=== PATIENT | male | born 1970 | race Two or more races ===

== ENCOUNTER 2021-08-04 16:41 | Inpatient (IN) | payer MEDICAID ==
[~2021-08-04] VITALS: Ht 185.4 cm; Wt 119.0 kg
[2021-08-04] MEDS ORDERED: KETOROLAC TROMETH 30 MG/ML 1ML VIAL IV ONE (18:15)
[2021-08-04] MEDS ORDERED: SODIUM CHLORIDE 0.9% 500 ML IV ONE (18:15)
[2021-08-04] MEDS ORDERED: CLINDAMYCIN 600MG IV 50 ML IV ONE (18:15)
[2021-08-04 18:59] LABS: Basophils # (auto) 0 10 ^3/uL (0-0.2); Basophils % (auto) 0.4 % (0.0-2.0); Eosinophils # (auto) 0.1 10 ^3/uL (0-0.8); Eosinophils % (auto) 1.1 % (0.0-7.0); Hematocrit 48.2 % (41.0-53.0); Hemoglobin 16.5 g/dL (13.5-17.5); Lymphocytes # (auto) 1.6 10 ^3/uL (0.4-5.4); Lymphocytes % (auto) 14.8 % (10.0-50.0); Mean Corpuscular Hemoglobin 30.2 pg (28.0-32.0); Mean Corpuscular Hgb Conc. 34.2 g/dL (32.0-36.0); Mean Corpuscular Volume 88.3 fL (80.0-100.0); Monocytes # (auto) 0.9 10 ^3/uL (0-1.3); Monocytes % (auto) 8.5 % (0.0-12.0); Neutrophils # (auto) 8.2 10 ^3/uL (1.6-8.6); Neutrophils % (auto) 75.2 % (37.0-80.0); Nucleated Red Blood Cells % 0.1 %; Red Blood Cells 5.46 10^6/uL (4.5-5.90); Red Cell Distribution Width 14.6 % (11.8-14.3); White Blood Cell 10.9 10^3/uL (4.4-10.8)
[2021-08-04 19:18] LABS: Albumin 3.8 g/dL (3.4-5.0); Calcium 8.7 mg/dL (8.5-10.1); Potassium 4.3 mmol/L (3.5-5.1)
[2021-08-04 19:21] LABS: BUN/Creatinine Ratio 12.7; Bilirubin, Total 0.6 mg/dL (0.2-1.0)
[2021-08-05] MEDS ORDERED: TEMAZEPAM 15 MG CAP PO PRN (00:30)
[2021-08-05] MEDS ORDERED: ACETAMINOPHEN 325 MG TAB PO PRN (00:30)
[2021-08-05] MEDS ORDERED: ONDANSETRON HCL 4 MG/2 ML VIAL IV PRN (00:30)
[2021-08-05] MEDS: HYDROcodone-ACET 5/325MG TAB PO PRN (01:15)
[2021-08-05] MEDS: cefTRIAXone 1GM/50ML D5W 50 ML IV SCH (03:38)
[2021-08-05] MEDS: CLINDAMYCIN 600MG IV 50 ML IV SCH ×3 (06:00→22:32)
[2021-08-05] MEDS ORDERED: PANTOPRAZOLE 40 MG TAB PO SCH (10:00)
[2021-08-05 12:30] VITALS: BP 143/75
[2021-08-05 13:00] VITALS: BP 143/75
[2021-08-05] MEDS ORDERED: ASPI-543 PO (14:20)
[2021-08-05 17:00] VITALS: BP 153/81
[2021-08-05 21:30] VITALS: BP 136/100
[2021-08-06] MEDS: HYDROcodone-ACET 5/325MG TAB PO PRN ×4 (04:39→23:15)
[2021-08-06 05:00] VITALS: BP 145/83
[2021-08-06 05:31] LABS: Basophils # (auto) 0 10 ^3/uL (0-0.2); Basophils % (auto) 0.5 % (0.0-2.0); Eosinophils # (auto) 0.2 10 ^3/uL (0-0.8); Eosinophils % (auto) 2.3 % (0.0-7.0); Hematocrit 43.3 % (41.0-53.0); Hemoglobin 14.8 g/dL (13.5-17.5); Lymphocytes # (auto) 1.9 10 ^3/uL (0.4-5.4); Lymphocytes % (auto) 27.6 % (10.0-50.0); Mean Corpuscular Hemoglobin 30.3 pg (28.0-32.0); Mean Corpuscular Hgb Conc. 34.1 g/dL (32.0-36.0); Mean Corpuscular Volume 88.8 fL (80.0-100.0); Monocytes # (auto) 0.5 10 ^3/uL (0-1.3); Monocytes % (auto) 7.3 % (0.0-12.0); Neutrophils # (auto) 4.3 10 ^3/uL (1.6-8.6); Neutrophils % (auto) 62.3 % (37.0-80.0); Red Blood Cells 4.88 10^6/uL (4.5-5.90); Red Cell Distribution Width 14.5 % (11.8-14.3); White Blood Cell 6.9 10^3/uL (4.4-10.8)
[2021-08-06] MEDS: CLINDAMYCIN 600MG IV 50 ML IV SCH ×3 (05:35→23:00)
[2021-08-06 05:54] LABS: Calcium 8.6 mg/dL (8.5-10.1); Potassium 3.8 mmol/L (3.5-5.1)
[2021-08-06 05:56] LABS: BUN/Creatinine Ratio 19.4
[2021-08-06 08:00] VITALS: BP 140/87
[2021-08-06] MEDS: cefTRIAXone 1GM/50ML D5W 50 ML IV SCH (09:06)
[2021-08-06 12:00] VITALS: BP 159/87
[2021-08-06 16:00] VITALS: BP 144/65
[2021-08-06] MEDS ORDERED: ALBUTEROL SULF 2.5 MG/0.5ML(0.5%) NEB SOLN ONE (18:20)
[2021-08-06] MEDS ORDERED: BUDESONIDE (INHALATION) 0.5 MG/2 ML NEB ONE (18:20)
[2021-08-06 22:00] VITALS: BP 152/83
[2021-08-07 05:00] VITALS: BP 152/84
[2021-08-07] MEDS: CLINDAMYCIN 600MG IV 50 ML IV SCH ×3 (07:06→23:00)
[2021-08-07 08:44] VITALS: BP 138/71
[2021-08-07] MEDS: cefTRIAXone 1GM/50ML D5W 50 ML IV SCH (08:52)
[2021-08-07] MEDS: HYDROcodone-ACET 5/325MG TAB PO PRN (08:53)
[2021-08-07 12:44] VITALS: BP 158/81
[2021-08-07 16:44] VITALS: BP 167/79
[2021-08-07 18:09] VITALS: BP 153/85
[2021-08-07 22:00] VITALS: BP 151/81
[2021-08-08 05:00] VITALS: BP 158/97
[2021-08-08] MEDS: CLINDAMYCIN 600MG IV 50 ML IV SCH ×3 (06:49→23:05)
[2021-08-08 08:47] VITALS: BP 153/86
[2021-08-08] MEDS: cefTRIAXone 1GM/50ML D5W 50 ML IV SCH (09:18)
[2021-08-08 13:00] VITALS: BP 156/88
[2021-08-08 13:22] LABS: INR 1.06 (0.9-1.15); Partial Thromboplastin Time 31.1 sec (23.6-33.0)
[2021-08-08] MEDS: HYDROcodone-ACET 5/325MG TAB PO PRN (13:35)
[2021-08-08 16:45] VITALS: BP 153/98
[2021-08-08 22:00] VITALS: BP 143/95
[2021-08-09 05:00] VITALS: BP 151/90
[2021-08-09] MEDS: CLINDAMYCIN 600MG IV 50 ML IV SCH ×3 (05:55→21:28)
[2021-08-09 09:00] VITALS: BP 149/81
[2021-08-09] MEDS: cefTRIAXone 1GM/50ML D5W 50 ML IV SCH (09:20)
[2021-08-09 13:00] VITALS: BP 152/82
[2021-08-09 17:00] VITALS: BP 138/87
[2021-08-09] MEDS: HYDROcodone-ACET 5/325MG TAB PO PRN (20:40)
[2021-08-09 22:00] VITALS: BP 154/97
[2021-08-10 05:00] VITALS: BP 144/98
[2021-08-10] MEDS: CLINDAMYCIN 600MG IV 50 ML IV SCH ×3 (05:24→21:20)
[2021-08-10 05:53] LABS: Basophils # (auto) 0 10 ^3/uL (0-0.2); Basophils % (auto) 0.6 % (0.0-2.0); Eosinophils # (auto) 0.2 10 ^3/uL (0-0.8); Eosinophils % (auto) 2.5 % (0.0-7.0); Hematocrit 47.5 % (41.0-53.0); Hemoglobin 16.4 g/dL (13.5-17.5); Lymphocytes # (auto) 2.2 10 ^3/uL (0.4-5.4); Lymphocytes % (auto) 25.6 % (10.0-50.0); Mean Corpuscular Hemoglobin 30.5 pg (28.0-32.0); Mean Corpuscular Hgb Conc. 34.6 g/dL (32.0-36.0); Mean Corpuscular Volume 88.2 fL (80.0-100.0); Monocytes # (auto) 0.5 10 ^3/uL (0-1.3); Monocytes % (auto) 6.3 % (0.0-12.0); Neutrophils # (auto) 5.5 10 ^3/uL (1.6-8.6); Red Blood Cells 5.38 10^6/uL (4.5-5.90); Red Cell Distribution Width 14.3 % (11.8-14.3); White Blood Cell 8.5 10^3/uL (4.4-10.8)
[2021-08-10 06:12] LABS: Albumin 3.2 g/dL (3.4-5.0); BUN/Creatinine Ratio 23.4; Calcium 8.7 mg/dL (8.5-10.1)
[2021-08-10 06:15] LABS: Bilirubin, Total 0.4 mg/dL (0.2-1.0); Total Protein 7.2 g/dL (6.4-8.2)
[2021-08-10 08:30] VITALS: BP_SYST 108; BP_SYST 152; BP_DIAS 72; BP_DIAS 90
[2021-08-10] MEDS: cefTRIAXone 1GM/50ML D5W 50 ML IV SCH (08:30)
[2021-08-10] MEDS ORDERED: GLYCOPYRROLATE 0.2 MG/ML 1ML VIAL ONE (11:43)
[2021-08-10] MEDS ORDERED: DexAMETHasone SOD PHOS 10MG/1ML VIAL INJ ONE (11:43)
[2021-08-10] MEDS ORDERED: KETOROLAC TROMETH 30 MG/ML 1ML VIAL ONE (11:43)
[2021-08-10] MEDS ORDERED: ONDANSETRON HCL 4 MG/2 ML VIAL ONE (11:43)
[2021-08-10] MEDS ORDERED: LIDOCAINE 2% (LOCAL ANESTH.) PF 5ml SDV ONE (11:43)
[2021-08-10] MEDS ORDERED: PROPOFOL 10 MG/ML 20 ML IV ONE (11:43)
[2021-08-10] MEDS ORDERED: HYDROmorphone HCL 2 MG/ML VL ONE (11:43)
[2021-08-10] MEDS ORDERED: MIDAZOLAM HCL 2MG/2ML 2ml VIAL (1mg/ml) ONE (11:43)
[2021-08-10] MEDS ORDERED: fentaNYL CITRATE 100 MCG/2 ML VL ONE (11:43)
[2021-08-10] MEDS ORDERED: ONDANSETRON HCL 4 MG/2 ML VIAL IV PRN (12:45)
[2021-08-10] MEDS ORDERED: HYDROmorphone HCL 2 MG/ML VL IV PRN (12:45)
[2021-08-10 17:00] VITALS: BP 130/68
[2021-08-10 22:00] VITALS: BP_SYST 113; BP_SYST 133; BP_DIAS 78; BP_DIAS 80
[2021-08-11 05:00] VITALS: BP 141/75
[2021-08-11] MEDS: CLINDAMYCIN 600MG IV 50 ML IV SCH ×3 (06:20→21:32)
[2021-08-11] MEDS: HYDROcodone-ACET 5/325MG TAB PO PRN ×2 (06:20→21:32)
[2021-08-11 06:31] LABS: Basophils # (auto) 0 10 ^3/uL (0-0.2); Basophils % (auto) 0.3 % (0.0-2.0); Eosinophils # (auto) 0 10 ^3/uL (0-0.8); Eosinophils % (auto) 0.2 % (0.0-7.0); Hematocrit 44.1 % (41.0-53.0); Hemoglobin 15.1 g/dL (13.5-17.5); Lymphocytes # (auto) 1.2 10 ^3/uL (0.4-5.4); Lymphocytes % (auto) 9.9 % (10.0-50.0); Mean Corpuscular Hemoglobin 30.1 pg (28.0-32.0); Mean Corpuscular Hgb Conc. 34.3 g/dL (32.0-36.0); Mean Corpuscular Volume 87.6 fL (80.0-100.0); Monocytes # (auto) 0.6 10 ^3/uL (0-1.3); Monocytes % (auto) 4.8 % (0.0-12.0); Neutrophils # (auto) 10.6 10 ^3/uL (1.6-8.6); Neutrophils % (auto) 84.8 % (37.0-80.0); Nucleated Red Blood Cells % 0.1 %; Red Blood Cells 5.03 10^6/uL (4.5-5.90); Red Cell Distribution Width 14.2 % (11.8-14.3); White Blood Cell 12.5 10^3/uL (4.4-10.8)
[2021-08-11 06:35] LABS: Calcium 8.5 mg/dL (8.5-10.1); Potassium 3.8 mmol/L (3.5-5.1)
[2021-08-11 06:38] LABS: BUN/Creatinine Ratio 30.9
[2021-08-11 09:00] VITALS: BP 126/77
[2021-08-11] MEDS: cefTRIAXone 1GM/50ML D5W 50 ML IV SCH (09:56)
[2021-08-11 13:00] VITALS: BP_SYST 112; BP_SYST 143; BP_DIAS 72; BP_DIAS 81
[2021-08-11 17:00] VITALS: BP 124/80
[2021-08-11 17:41] LABS: Alcohol, Urine < 3.0 mg/dL (0-10); Amphetamine Screen, Urine NEGATIVE (NEGATIVE); Barbiturate Scree,Urine NEGATIVE (NEGATIVE); Benzodiazephine Screen, Urine POSITIVE (NEGATIVE); Cannabinoid Screen, Urine NEGATIVE (NEGATIVE); Cocaine Screen, Urine NEGATIVE (NEGATIVE); Opiate Scree,Urine NEGATIVE (NEGATIVE); Phencyclidine Screen, Urine NEGATIVE (NEGATIVE)
[2021-08-11 22:00] VITALS: BP 149/75
[2021-08-12 05:00] VITALS: BP 138/58
[2021-08-12] MEDS: CLINDAMYCIN 600MG IV 50 ML IV SCH (05:56)
[2021-08-12 09:10] VITALS: BP 155/92
[2021-08-12] MEDS: cefTRIAXone 1GM/50ML D5W 50 ML IV SCH (09:14)
[2021-08-12] MEDS: HYDROcodone-ACET 5/325MG TAB PO PRN (09:15)
[2021-08-12 13:18] VITALS: BP 143/74
[2021-08-12 13:37] VITALS: BP 143/74
[2021-08-12 14:09] VITALS: BP 143/74
== END 2021-08-12 17:10 | disposition home or self-care (01) | DRG 720 ==
LOC: ER 16:41 → OVERFLOW 08-05 00:18 → WEST WING 08-05 08:50
PROVIDERS: ADMIT Nurse Practitioner; ATTEND Internal Medicine
PROC: 0JBN0ZZ Excision of Right Lower Leg Subcutaneous Tissue and Fascia, Open Approach (ICD-10-PCS; principal; 2021-08-10 11:55)
DX: A41.01 Sepsis due to Methicillin susceptible Staphylococcus aureus (principal); L03.115 Cellulitis of right lower limb; E66.9 Obesity, unspecified; I10 Essential (primary) hypertension; B95.61 Methicillin susceptible Staphylococcus aureus infection as the cause of diseases classified elsewhere; F15.10 Other stimulant abuse, uncomplicated; Z20.822 Contact with and (suspected) exposure to COVID-19; F17.210 Nicotine dependence, cigarettes, uncomplicated; Z82.3 Family history of stroke; Z82.49 Family history of ischemic heart disease and other diseases of the circulatory system; Z95.2 Presence of prosthetic heart valve; Z90.49 Acquired absence of other specified parts of digestive tract; Z91.19 Patient's noncompliance with other medical treatment and regimen; Z88.0 Allergy status to penicillin; Z68.32 Body mass index [BMI] 32.0-32.9, adult
CPT/HCPCS: 36415; 73590; 73700; 80048; 80053; 80307; 82962; 85025; 85610; 85652; 85730; 87040; 87070; 87075; 87077; 87186; 87205; 87426; 93005; 93306; 93971; 96365; 96366; 96367; G0378; J0696; J1100; J1885; J2001; J2250; J2405; J2704; J3490

== ENCOUNTER 2021-10-29 17:51 | Inpatient (IN) | payer MEDICAID, OTHER ==
[~2021-10-29] VITALS: Ht 185.4 cm; Wt 116.6 kg
[~2021-10-29 17:51] MED LIST: ASPI-543 PO
[2021-10-29] MEDS ORDERED: CLINDAMYCIN 600MG IV 50 ML IV ONE (19:00)
[2021-10-29] MEDS ORDERED: SODIUM CHLORIDE 0.9% 500 ML IV ONE (19:00)
[2021-10-29] MEDS ORDERED: DOCUSATE SOD 100 MG CAP PO PRN (21:30)
[2021-10-29] MEDS ORDERED: ACETAMINOPHEN 325 MG TAB PO PRN (21:30)
[2021-10-29] MEDS ORDERED: SODIUM CHLORIDE 0.9% 1,000 ML IV ONE (21:30)
[2021-10-29] MEDS ORDERED: ONDANSETRON HCL 4 MG/2 ML VIAL IV PRN (21:30)
[2021-10-29 22:11] LABS: Basophils # (auto) 0 10 ^3/uL (0-0.2); Basophils % (auto) 0.5 % (0.0-2.0); Eosinophils # (auto) 0.1 10 ^3/uL (0-0.8); Eosinophils % (auto) 1.1 % (0.0-7.0); Hematocrit 45.9 % (41.0-53.0); Hemoglobin 15.6 g/dL (13.5-17.5); Lymphocytes # (auto) 1.2 10 ^3/uL (0.4-5.4); Lymphocytes % (auto) 12.6 % (10.0-50.0); Mean Corpuscular Hemoglobin 30.3 pg (28.0-32.0); Mean Corpuscular Volume 88.9 fL (80.0-100.0); Monocytes # (auto) 0.6 10 ^3/uL (0-1.3); Monocytes % (auto) 6.4 % (0.0-12.0); Neutrophils # (auto) 7.6 10 ^3/uL (1.6-8.6); Neutrophils % (auto) 79.4 % (37.0-80.0); Red Blood Cells 5.17 10^6/uL (4.5-5.90); Red Cell Distribution Width 14.6 % (11.8-14.3); White Blood Cell 9.5 10^3/uL (4.4-10.8)
[2021-10-29] MEDS ORDERED: MORPHINE SULFATE INJECTION 2 MG/ML SYRG IV PRN (22:30)
[2021-10-29] MEDS ORDERED: NITROGLYCERIN 0.4 MG SL TAB SL PRN (22:30)
[2021-10-29] MEDS: SODIUM CHLOR 0.9% PF (SALINE LOCK) 10ML VIAL/SYR IV SCH (22:32)
[2021-10-29 22:33] LABS: Potassium 4.4 mmol/L (3.5-5.1)
[2021-10-29 22:40] LABS: Albumin 3.9 g/dL (3.4-5.0); BUN/Creatinine Ratio 21.1; Bilirubin, Total 0.6 mg/dL (0.2-1.0); Calcium 8.6 mg/dL (8.5-10.1); Total Protein 7.6 g/dL (6.4-8.2)
[2021-10-29] MEDS: CLINDAMYCIN 600MG IV 50 ML IV SCH (22:54)
[2021-10-29] MEDS: ASCORBIC ACID 500 MG TAB PO SCH (22:55)
[2021-10-29] MEDS: ENOXAPARIN SOD 60 MG/0.6 ML SYRINGE SC SCH (22:55)
[2021-10-29 23:17] LABS: INR 1.03 (0.9-1.15); Partial Thromboplastin Time 27.3 sec (23.6-33.0)
[2021-10-30 03:12] VITALS: BP 150/88
[2021-10-30] MEDS ORDERED: METO-158 PO (04:22)
[2021-10-30 05:00] VITALS: BP 150/88
[2021-10-30 05:36] LABS: Urine Bacteria NONE SEEN /hpf (None Seen); Urine Blood Negative /uL (Negative); Urine Hyaline Cast FEW /lpf (0 - 2); Urine Mucus FEW (None Seen); Urine Specific Gravity 1.033 (1.001-1.035); Urine WBC 1 /hpf (0 - 3)
[2021-10-30] MEDS: CLINDAMYCIN 600MG IV 50 ML IV SCH ×3 (05:46→20:57)
[2021-10-30] MEDS: SODIUM CHLOR 0.9% PF (SALINE LOCK) 10ML VIAL/SYR IV SCH ×3 (05:46→20:57)
[2021-10-30 09:00] VITALS: BP 146/89
[2021-10-30] MEDS: ASCORBIC ACID 500 MG TAB PO SCH ×2 (09:18→20:58)
[2021-10-30] MEDS: ZINC SULFATE 220mg CAP or TAB PO SCH (09:18)
[2021-10-30] MEDS: ENOXAPARIN SOD 60 MG/0.6 ML SYRINGE SC SCH ×2 (09:19→20:58)
[2021-10-30] MEDS: MULTIPLE VITAMIN TAB PO SCH (09:19)
[2021-10-30] MEDS: HYDROcodone-ACET 5/325MG TAB PO PRN (09:19)
[2021-10-30] MEDS ORDERED: FAMOTIDINE (10MG/ML) 2ML VL IV SCH (10:00)
[2021-10-30 10:05] LABS: Basophils # (auto) 0 10 ^3/uL (0-0.2); Basophils % (auto) 0.7 % (0.0-2.0); Eosinophils # (auto) 0.1 10 ^3/uL (0-0.8); Eosinophils % (auto) 2.1 % (0.0-7.0); Hematocrit 41.7 % (41.0-53.0); Hemoglobin 14.3 g/dL (13.5-17.5); Lymphocytes # (auto) 1.3 10 ^3/uL (0.4-5.4); Lymphocytes % (auto) 21.2 % (10.0-50.0); Mean Corpuscular Hemoglobin 30.5 pg (28.0-32.0); Mean Corpuscular Hgb Conc. 34.3 g/dL (32.0-36.0); Mean Corpuscular Volume 88.9 fL (80.0-100.0); Monocytes # (auto) 0.4 10 ^3/uL (0-1.3); Monocytes % (auto) 7.2 % (0.0-12.0); Neutrophils # (auto) 4.1 10 ^3/uL (1.6-8.6); Neutrophils % (auto) 68.8 % (37.0-80.0); Red Blood Cells 4.69 10^6/uL (4.5-5.90); Red Cell Distribution Width 14.5 % (11.8-14.3); White Blood Cell 5.9 10^3/uL (4.4-10.8)
[2021-10-30 10:12] LABS: Potassium 3.4 mmol/L (3.5-5.1)
[2021-10-30 10:21] LABS: Albumin 3.3 g/dL (3.4-5.0); BUN/Creatinine Ratio 14.6; Bilirubin, Total 0.6 mg/dL (0.2-1.0); Calcium 8.3 mg/dL (8.5-10.1); Total Protein 6.6 g/dL (6.4-8.2)
[2021-10-30 13:00] VITALS: BP 156/91
[2021-10-30 17:00] VITALS: BP 156/135
[2021-10-30] MEDS: METOPROLOL TARTRATE 50 MG TAB PO SCH (21:03)
[2021-10-30 22:00] VITALS: BP 103/79
[2021-10-30] MEDS: DAKINS HALF STR 0.25% (NaHypochlorite) 473 ML TOPICAL SOL TOP SCH (22:15)
[2021-10-31] MEDS: CLINDAMYCIN 600MG IV 50 ML IV SCH ×3 (05:13→21:17)
[2021-10-31] MEDS: SODIUM CHLOR 0.9% PF (SALINE LOCK) 10ML VIAL/SYR IV SCH ×3 (05:14→21:17)
[2021-10-31 09:00] VITALS: BP 139/83
[2021-10-31] MEDS ORDERED: POTASSIUM CHL 20 Meq TABLET PO ONE (09:15)
[2021-10-31] MEDS: ZINC SULFATE 220mg CAP or TAB PO SCH (10:53)
[2021-10-31] MEDS: ASPirin 81 mg TAB PO SCH (10:53)
[2021-10-31] MEDS: MULTIPLE VITAMIN TAB PO SCH (10:54)
[2021-10-31] MEDS: ENOXAPARIN SOD 60 MG/0.6 ML SYRINGE SC SCH ×2 (10:54→21:18)
[2021-10-31] MEDS: ASCORBIC ACID 500 MG TAB PO SCH ×2 (10:54→21:18)
[2021-10-31] MEDS: METOPROLOL TARTRATE 50 MG TAB PO SCH ×2 (10:54→21:53)
[2021-10-31] MEDS: DAKINS HALF STR 0.25% (NaHypochlorite) 473 ML TOPICAL SOL TOP SCH (10:55)
[2021-10-31 13:00] VITALS: BP 133/75
[2021-10-31 17:00] VITALS: BP 140/86
[2021-10-31 22:00] VITALS: BP 135/72
[2021-11-01 05:00] VITALS: BP 135/78
[2021-11-01] MEDS: CLINDAMYCIN 600MG IV 50 ML IV SCH ×3 (05:46→22:33)
[2021-11-01] MEDS: SODIUM CHLOR 0.9% PF (SALINE LOCK) 10ML VIAL/SYR IV SCH ×3 (05:47→22:00)
[2021-11-01 09:00] VITALS: BP 153/89
[2021-11-01] MEDS: ASPirin 81 mg TAB PO SCH (10:55)
[2021-11-01] MEDS: MULTIPLE VITAMIN TAB PO SCH (10:56)
[2021-11-01] MEDS: ZINC SULFATE 220mg CAP or TAB PO SCH (10:56)
[2021-11-01] MEDS: METOPROLOL TARTRATE 50 MG TAB PO SCH ×2 (10:56→22:35)
[2021-11-01] MEDS: ENOXAPARIN SOD 60 MG/0.6 ML SYRINGE SC SCH ×2 (10:57→22:34)
[2021-11-01] MEDS: DAKINS HALF STR 0.25% (NaHypochlorite) 473 ML TOPICAL SOL TOP SCH (10:57)
[2021-11-01] MEDS: ASCORBIC ACID 500 MG TAB PO SCH ×2 (10:57→22:34)
[2021-11-01 17:00] VITALS: BP 130/87
[2021-11-01 22:00] VITALS: BP 109/60
[2021-11-01] MEDS: MORPHINE SULFATE 4 MG/ML SYR/VIAL IV PRN (23:04)
[2021-11-02 06:00] VITALS: BP 140/79
[2021-11-02] MEDS: CLINDAMYCIN 600MG IV 50 ML IV SCH ×3 (06:21→23:06)
[2021-11-02] MEDS: SODIUM CHLOR 0.9% PF (SALINE LOCK) 10ML VIAL/SYR IV SCH ×3 (06:21→23:06)
[2021-11-02 09:00] VITALS: BP 123/66
[2021-11-02] MEDS: ASPirin 81 mg TAB PO SCH (09:58)
[2021-11-02] MEDS: MORPHINE SULFATE 4 MG/ML SYR/VIAL IV PRN ×2 (09:58→19:31)
[2021-11-02] MEDS: METOPROLOL TARTRATE 50 MG TAB PO SCH ×2 (09:59→23:07)
[2021-11-02] MEDS: ENOXAPARIN SOD 60 MG/0.6 ML SYRINGE SC SCH ×2 (09:59→23:08)
[2021-11-02] MEDS: ASCORBIC ACID 500 MG TAB PO SCH ×2 (09:59→23:07)
[2021-11-02] MEDS: ZINC SULFATE 220mg CAP or TAB PO SCH (09:59)
[2021-11-02] MEDS: MULTIPLE VITAMIN TAB PO SCH (09:59)
[2021-11-02] MEDS: DAKINS HALF STR 0.25% (NaHypochlorite) 473 ML TOPICAL SOL TOP SCH (10:04)
[2021-11-02 13:00] VITALS: BP 137/75
[2021-11-02 17:00] VITALS: BP 126/74
[2021-11-03] MEDS: SODIUM CHLOR 0.9% PF (SALINE LOCK) 10ML VIAL/SYR IV SCH ×3 (06:52→22:55)
[2021-11-03] MEDS: CLINDAMYCIN 600MG IV 50 ML IV SCH ×3 (07:08→22:56)
[2021-11-03 08:30] VITALS: BP 143/80
[2021-11-03] MEDS: HYDROcodone-ACET 5/325MG TAB PO PRN ×3 (09:28→22:58)
[2021-11-03] MEDS: ASPirin 81 mg TAB PO SCH (09:29)
[2021-11-03] MEDS: ASCORBIC ACID 500 MG TAB PO SCH ×2 (09:29→22:57)
[2021-11-03] MEDS: ZINC SULFATE 220mg CAP or TAB PO SCH (09:29)
[2021-11-03] MEDS: METOPROLOL TARTRATE 50 MG TAB PO SCH ×2 (09:30→22:56)
[2021-11-03] MEDS: DAKINS HALF STR 0.25% (NaHypochlorite) 473 ML TOPICAL SOL TOP SCH (09:30)
[2021-11-03] MEDS: MULTIPLE VITAMIN TAB PO SCH (09:30)
[2021-11-03] MEDS: ENOXAPARIN SOD 60 MG/0.6 ML SYRINGE SC SCH ×2 (09:31→22:57)
[2021-11-03 23:03] VITALS: BP 135/77
[2021-11-04 05:33] VITALS: BP 152/75
[2021-11-04] MEDS: SODIUM CHLOR 0.9% PF (SALINE LOCK) 10ML VIAL/SYR IV SCH ×3 (06:24→22:04)
[2021-11-04] MEDS: CLINDAMYCIN 600MG IV 50 ML IV SCH ×3 (06:24→22:04)
[2021-11-04] MEDS: HYDROcodone-ACET 5/325MG TAB PO PRN ×2 (06:31→17:15)
[2021-11-04 07:58] VITALS: BP 128/71
[2021-11-04 08:30] VITALS: BP 128/71
[2021-11-04] MEDS: ASPirin 81 mg TAB PO SCH (09:16)
[2021-11-04] MEDS: METOPROLOL TARTRATE 50 MG TAB PO SCH ×2 (09:16→22:05)
[2021-11-04] MEDS: ENOXAPARIN SOD 60 MG/0.6 ML SYRINGE SC SCH ×2 (09:16→22:05)
[2021-11-04] MEDS: MULTIPLE VITAMIN TAB PO SCH (09:16)
[2021-11-04] MEDS: ASCORBIC ACID 500 MG TAB PO SCH ×2 (09:16→22:05)
[2021-11-04] MEDS: DAKINS HALF STR 0.25% (NaHypochlorite) 473 ML TOPICAL SOL TOP SCH (09:16)
[2021-11-04] MEDS: ZINC SULFATE 220mg CAP or TAB PO SCH (09:16)
[2021-11-04 11:55] VITALS: BP 138/80
[2021-11-04 17:04] VITALS: BP 148/77
[2021-11-04 22:00] VITALS: BP 118/81
[2021-11-05] MEDS: HYDROcodone-ACET 5/325MG TAB PO PRN ×2 (04:50→21:45)
[2021-11-05 05:00] VITALS: BP 148/78
[2021-11-05] MEDS: CLINDAMYCIN 600MG IV 50 ML IV SCH ×3 (06:04→21:43)
[2021-11-05] MEDS: SODIUM CHLOR 0.9% PF (SALINE LOCK) 10ML VIAL/SYR IV SCH ×3 (06:04→21:44)
[2021-11-05 07:46] LABS: Basophils # (auto) 0.1 10 ^3/uL (0-0.2); Eosinophils # (auto) 0.2 10 ^3/uL (0-0.8); Eosinophils % (auto) 2.7 % (0.0-7.0); Hematocrit 47.4 % (41.0-53.0); Hemoglobin 16.2 g/dL (13.5-17.5); Lymphocytes # (auto) 2.2 10 ^3/uL (0.4-5.4); Lymphocytes % (auto) 31.6 % (10.0-50.0); Mean Corpuscular Hemoglobin 30.5 pg (28.0-32.0); Mean Corpuscular Hgb Conc. 34.3 g/dL (32.0-36.0); Monocytes # (auto) 0.6 10 ^3/uL (0-1.3); Monocytes % (auto) 8.6 % (0.0-12.0); Neutrophils # (auto) 3.9 10 ^3/uL (1.6-8.6); Neutrophils % (auto) 56.1 % (37.0-80.0); Nucleated Red Blood Cells % 0.2 %; Red Blood Cells 5.33 10^6/uL (4.5-5.90); Red Cell Distribution Width 14.6 % (11.8-14.3)
[2021-11-05 07:55] LABS: Calcium 8.7 mg/dL (8.5-10.1); Potassium 4.4 mmol/L (3.5-5.1)
[2021-11-05 08:30] VITALS: BP 134/75
[2021-11-05 09:00] VITALS: BP 134/75
[2021-11-05] MEDS: ASPirin 81 mg TAB PO SCH (09:41)
[2021-11-05] MEDS: ASCORBIC ACID 500 MG TAB PO SCH ×2 (09:42→21:43)
[2021-11-05] MEDS: MULTIPLE VITAMIN TAB PO SCH (09:42)
[2021-11-05] MEDS: METOPROLOL TARTRATE 50 MG TAB PO SCH ×2 (09:43→21:53)
[2021-11-05] MEDS: DAKINS HALF STR 0.25% (NaHypochlorite) 473 ML TOPICAL SOL TOP SCH (09:43)
[2021-11-05] MEDS: ZINC SULFATE 220mg CAP or TAB PO SCH (09:43)
[2021-11-05] MEDS: ENOXAPARIN SOD 60 MG/0.6 ML SYRINGE SC SCH ×2 (09:43→21:43)
[2021-11-05 13:00] VITALS: BP 122/65
[2021-11-05 17:23] VITALS: BP 137/61
[2021-11-05] MEDS: MORPHINE SULFATE 4 MG/ML SYR/VIAL IV PRN (18:29)
[2021-11-05 22:35] VITALS: BP 153/76
[2021-11-06 05:13] VITALS: BP 111/64
[2021-11-06] MEDS: SODIUM CHLOR 0.9% PF (SALINE LOCK) 10ML VIAL/SYR IV SCH (06:38)
[2021-11-06] MEDS: CLINDAMYCIN 600MG IV 50 ML IV SCH (06:38)
[2021-11-06] MEDS: HYDROcodone-ACET 5/325MG TAB PO PRN (08:45)
[2021-11-06 09:00] VITALS: BP 135/75
[2021-11-06] MEDS: ASPirin 81 mg TAB PO SCH (09:05)
[2021-11-06] MEDS: MULTIPLE VITAMIN TAB PO SCH (09:05)
[2021-11-06] MEDS: ZINC SULFATE 220mg CAP or TAB PO SCH (09:05)
[2021-11-06] MEDS: METOPROLOL TARTRATE 50 MG TAB PO SCH (09:06)
[2021-11-06] MEDS: ENOXAPARIN SOD 60 MG/0.6 ML SYRINGE SC SCH (09:06)
[2021-11-06] MEDS: DAKINS HALF STR 0.25% (NaHypochlorite) 473 ML TOPICAL SOL TOP SCH (09:07)
[2021-11-06] MEDS: ASCORBIC ACID 500 MG TAB PO SCH (09:07)
[2021-11-06] MEDS ORDERED: HYDR-4902 PO (10:49)
[2021-11-06] MEDS ORDERED: CLIN300C8 PO (10:49)
[2021-11-06 13:07] VITALS: BP 104/55
== END 2021-11-06 14:00 | disposition home or self-care (01) | DRG 383 ==
LOC: ER 17:52 → OVERFLOW 22:19 → CENTRAL 10-30 02:51
PROVIDERS: ADMIT Nurse Practitioner Family; ATTEND Family Medicine
DX: L03.115 Cellulitis of right lower limb (principal); L97.519 Non-pressure chronic ulcer of other part of right foot with unspecified severity; T33.821A Superficial frostbite of right foot, initial encounter; F15.90 Other stimulant use, unspecified, uncomplicated; F17.210 Nicotine dependence, cigarettes, uncomplicated; B95.7 Other staphylococcus as the cause of diseases classified elsewhere; I10 Essential (primary) hypertension; Z20.822 Contact with and (suspected) exposure to COVID-19; Z95.2 Presence of prosthetic heart valve; Z82.3 Family history of stroke; Z82.49 Family history of ischemic heart disease and other diseases of the circulatory system; Z86.73 Personal history of transient ischemic attack (TIA), and cerebral infarction without residual deficits; Z86.79 Personal history of other diseases of the circulatory system; Z91.19 Patient's noncompliance with other medical treatment and regimen; Z88.0 Allergy status to penicillin; Z90.49 Acquired absence of other specified parts of digestive tract; Z89.112 Acquired absence of left hand; Z71.6 Tobacco abuse counseling
CPT/HCPCS: 36415; 73700; 80048; 80053; 81001; 83605; 85025; 85610; 85730; 87040; 87077; 87186; 87426; 93926; 93970; 96361; 96374; G0378; J3490; J7042

== ENCOUNTER 2021-11-15 16:58 | Emergency (ER) | payer OTHER ==
[~2021-11-15] VITALS: Ht 188 cm; Wt 113.4 kg
[~2021-11-15 16:58] MED LIST changes: +CLIN300C8 PO; +HYDR-4902 PO; +METO-158 PO
[2021-11-15 18:22] LABS: Basophils # (auto) 0.1 10 ^3/uL (0-0.2); Basophils % (auto) 0.6 % (0.0-2.0); Eosinophils # (auto) 0.1 10 ^3/uL (0-0.8); Eosinophils % (auto) 0.8 % (0.0-7.0); Lymphocytes # (auto) 1.2 10 ^3/uL (0.4-5.4); Lymphocytes % (auto) 12.4 % (10.0-50.0); Mean Corpuscular Hemoglobin 29.8 pg (28.0-32.0); Mean Corpuscular Hgb Conc. 33.4 g/dL (32.0-36.0); Mean Corpuscular Volume 89.1 fL (80.0-100.0); Monocytes # (auto) 0.4 10 ^3/uL (0-1.3); Monocytes % (auto) 4.5 % (0.0-12.0); Neutrophils # (auto) 7.7 10 ^3/uL (1.6-8.6); Neutrophils % (auto) 81.7 % (37.0-80.0); Nucleated Red Blood Cells % 0.1 %; Red Blood Cells 5.05 10^6/uL (4.5-5.90); Red Cell Distribution Width 14.2 % (11.8-14.3); White Blood Cell 9.5 10^3/uL (4.4-10.8)
[2021-11-15 18:24] LABS: Albumin 3.7 g/dL (3.4-5.0); Calcium 8.9 mg/dL (8.5-10.1); Potassium 3.6 mmol/L (3.5-5.1)
[2021-11-15 18:31] LABS: Bilirubin, Total 0.7 mg/dL (0.2-1.0); Total Protein 7.8 g/dL (6.4-8.2)
[2021-11-15 19:43] VITALS: BP 114/75
== END 2021-11-15 20:08 | disposition left against medical advice (07) ==
LOC: ER 16:58 → EDBD 16:58 → ER 20:08
DX: M79.605 Pain in left leg (principal); M79.604 Pain in right leg; Z53.21 Procedure and treatment not carried out due to patient leaving prior to being seen by health care provider
CPT/HCPCS: 36415; 80053; 83880; 84484; 85025

== ENCOUNTER 2022-09-16 12:57 | Inpatient (IN) | payer OTHER ==
[~2022-09-16] VITALS: Ht 188 cm; Wt 125.5 kg
[2022-09-16 20:55] LABS: Urine Specific Gravity 1.022 (1.001-1.035)
[2022-09-16 20:56] LABS: Urine Blood Negative /uL (Negative)
[2022-09-17] MEDS ORDERED: HYDROcodone-ACET 10/325MG TAB PO ONE (01:30)
[2022-09-17] MEDS ORDERED: VANCOMYCIN 1GM/250ML 250 ML IV ONE ×3 (01:30→15:00)
[2022-09-17] MEDS ORDERED: ONDANSETRON ODT 4 MG TAB PO ONE (01:30)
[2022-09-17] MEDS ORDERED: CEFTRIAXONE SODIUM 2 GM in D5W 5% 50 ML IV ONE (01:30)
[2022-09-17 01:52] LABS: Basophils # (auto) 0.1 10 ^3/uL (0-0.2); Basophils % (auto) 0.7 % (0.0-2.0); Eosinophils # (auto) 0.2 10 ^3/uL (0-0.8); Eosinophils % (auto) 2.6 % (0.0-7.0); Hemoglobin 16.1 g/dL (13.5-17.5); Lymphocytes # (auto) 1.4 10 ^3/uL (0.4-5.4); Lymphocytes % (auto) 16.1 % (10.0-50.0); Mean Corpuscular Hemoglobin 29.3 pg (28.0-32.0); Mean Corpuscular Hgb Conc. 32.9 g/dL (32.0-36.0); Mean Corpuscular Volume 89.2 fL (80.0-100.0); Monocytes # (auto) 0.5 10 ^3/uL (0-1.3); Monocytes % (auto) 5.7 % (0.0-12.0); Neutrophils # (auto) 6.6 10 ^3/uL (1.6-8.6); Neutrophils % (auto) 74.9 % (37.0-80.0); Red Blood Cells 5.49 10^6/uL (4.5-5.90); Red Cell Distribution Width 14.5 % (11.8-14.3); White Blood Cell 8.8 10^3/uL (4.4-10.8)
[2022-09-17 02:02] LABS: Albumin 3.8 g/dL (3.4-5.0); BUN/Creatinine Ratio 23.5; Calcium 9.3 mg/dL (8.5-10.1); Potassium 3.6 mmol/L (3.5-5.1)
[2022-09-17 02:05] LABS: Bilirubin, Total 0.4 mg/dL (0.2-1.0); Total Protein 7.6 g/dL (6.4-8.2)
[2022-09-17 02:25] LABS: CRP High Sensitivity 0.516 mg/dL (< 0.3)
[2022-09-17] MEDS ORDERED: VANCOMYCIN PER PHARMACY 0 MG IV SCH (04:45)
[2022-09-17] MEDS ORDERED: MORPHINE SULFATE INJ 2 MG/ml SYRG IV PRN (04:45)
[2022-09-17] MEDS ORDERED: hydrALAZINE HCL 20 MG/ML VL IV PRN (04:45)
[2022-09-17] MEDS ORDERED: ACETAMINOPHEN 325 MG TAB PO PRN (04:45)
[2022-09-17] MEDS ORDERED: ONDANSETRON HCL 4 MG/2 ML VIAL IV PRN (04:45)
[2022-09-17] MEDS ORDERED: NITROGLYCERIN 0.4 MG SL TAB SL PRN (04:45)
[2022-09-17] MEDS ORDERED: DOCUSATE SOD 100 MG CAP PO PRN (04:45)
[2022-09-17 07:12] LABS: Basophils # (auto) 0.1 10 ^3/uL (0-0.2); Basophils % (auto) 0.6 % (0.0-2.0); Eosinophils # (auto) 0.1 10 ^3/uL (0-0.8); Eosinophils % (auto) 1.7 % (0.0-7.0); Hematocrit 44.7 % (41.0-53.0); Hemoglobin 14.8 g/dL (13.5-17.5); Lymphocytes # (auto) 1.8 10 ^3/uL (0.4-5.4); Mean Corpuscular Hemoglobin 29.4 pg (28.0-32.0); Mean Corpuscular Volume 88.9 fL (80.0-100.0); Monocytes # (auto) 0.6 10 ^3/uL (0-1.3); Monocytes % (auto) 6.6 % (0.0-12.0); Neutrophils % (auto) 70.1 % (37.0-80.0); Nucleated Red Blood Cells % 0.1 %; Red Blood Cells 5.02 10^6/uL (4.5-5.90); Red Cell Distribution Width 14.6 % (11.8-14.3); White Blood Cell 8.5 10^3/uL (4.4-10.8)
[2022-09-17 07:29] LABS: Albumin 3.3 g/dL (3.4-5.0); Calcium 8.6 mg/dL (8.5-10.1); Potassium 4.3 mmol/L (3.5-5.1)
[2022-09-17 07:32] LABS: BUN/Creatinine Ratio 29.2; Bilirubin, Total 0.9 mg/dL (0.2-1.0); Total Protein 6.4 g/dL (6.4-8.2)
[2022-09-17] MEDS: SODIUM CHLORIDE 0.9% 1,000 ML IV SCH (08:15)
[2022-09-17] MEDS: ENOXAPARIN SOD 40 MG/0.4 ML SYRINGE SC SCH (11:32)
[2022-09-17] MEDS: MULTIPLE VITAMIN TAB PO SCH (11:33)
[2022-09-17] MEDS: ASCORBIC ACID 500 MG TAB PO SCH ×2 (11:33→22:01)
[2022-09-17] MEDS: ASPirin 81 mg TAB PO SCH (11:33)
[2022-09-17] MEDS: HYDROcodone-ACET 5/325MG TAB PO PRN (11:33)
[2022-09-17] MEDS: ZINC SULFATE 220mg CAP or TAB PO SCH (13:28)
[2022-09-17] MEDS: MORPHINE SULFATE INJ 2 MG/ml SYRG IV PRN ×2 (16:23→21:31)
[2022-09-17] MEDS: levoFLOXacin 500MG 100 ML IV SCH (16:24)
[2022-09-17 22:00] VITALS: BP 124/70
[2022-09-18] MEDS: VANCOMYCIN 1GM/250ML 250 ML IV SCH ×3 (00:22→17:26)
[2022-09-18] MEDS: MORPHINE SULFATE INJ 2 MG/ml SYRG IV PRN ×4 (03:05→21:07)
[2022-09-18 05:00] VITALS: BP 118/55
[2022-09-18] MEDS: SODIUM CHLORIDE 0.9% 1,000 ML IV SCH ×2 (05:26→14:05)
[2022-09-18 06:33] LABS: Basophils # (auto) 0.1 10 ^3/uL (0-0.2); Eosinophils # (auto) 0.2 10 ^3/uL (0-0.8); Eosinophils % (auto) 2.6 % (0.0-7.0); Hematocrit 45.7 % (41.0-53.0); Lymphocytes # (auto) 2.2 10 ^3/uL (0.4-5.4); Lymphocytes % (auto) 29.5 % (10.0-50.0); Mean Corpuscular Hemoglobin 29.2 pg (28.0-32.0); Mean Corpuscular Hgb Conc. 32.9 g/dL (32.0-36.0); Mean Corpuscular Volume 88.8 fL (80.0-100.0); Monocytes # (auto) 0.6 10 ^3/uL (0-1.3); Monocytes % (auto) 8.5 % (0.0-12.0); Neutrophils # (auto) 4.3 10 ^3/uL (1.6-8.6); Neutrophils % (auto) 58.4 % (37.0-80.0); Nucleated Red Blood Cells % 0.1 %; Red Blood Cells 5.14 10^6/uL (4.5-5.90); Red Cell Distribution Width 14.5 % (11.8-14.3); White Blood Cell 7.4 10^3/uL (4.4-10.8)
[2022-09-18 06:52] LABS: Albumin 3.1 g/dL (3.4-5.0); Calcium 8.7 mg/dL (8.5-10.1); Potassium 4.3 mmol/L (3.5-5.1)
[2022-09-18 06:58] LABS: BUN/Creatinine Ratio 21.1; Bilirubin, Total 0.6 mg/dL (0.2-1.0); Total Protein 6.6 g/dL (6.4-8.2)
[2022-09-18 09:29] VITALS: BP 160/87
[2022-09-18] MEDS: ZINC SULFATE 220mg CAP or TAB PO SCH (10:17)
[2022-09-18] MEDS: ASCORBIC ACID 500 MG TAB PO SCH ×2 (10:17→21:05)
[2022-09-18] MEDS: ASPirin 81 mg TAB PO SCH (10:17)
[2022-09-18] MEDS: MULTIPLE VITAMIN TAB PO SCH (10:17)
[2022-09-18] MEDS: ENOXAPARIN SOD 40 MG/0.4 ML SYRINGE SC SCH (10:18)
[2022-09-18 12:52] VITALS: BP 168/84
[2022-09-18] MEDS: levoFLOXacin 500MG 100 ML IV SCH (13:59)
[2022-09-18 16:04] LABS: Alcohol, Urine < 3.0 mg/dL (0-10); Amphetamine Screen, Urine NEGATIVE (NEGATIVE); Barbiturate Scree,Urine NEGATIVE (NEGATIVE); Benzodiazephine Screen, Urine NEGATIVE (NEGATIVE); Cannabinoid Screen, Urine NEGATIVE (NEGATIVE); Cocaine Screen, Urine NEGATIVE (NEGATIVE); Opiate Scree,Urine NEGATIVE (NEGATIVE); Phencyclidine Screen, Urine NEGATIVE (NEGATIVE)
[2022-09-18 16:51] VITALS: BP 137/66
[2022-09-18 22:00] VITALS: BP 148/69
[2022-09-19] MEDS: VANCOMYCIN 1GM/250ML 250 ML IV SCH ×3 (00:55→16:00)
[2022-09-19] MEDS: MORPHINE SULFATE INJ 2 MG/ml SYRG IV PRN ×4 (00:55→20:31)
[2022-09-19 05:00] VITALS: BP 163/82
[2022-09-19] MEDS: SODIUM CHLORIDE 0.9% 1,000 ML IV SCH ×2 (06:45→21:30)
[2022-09-19 07:12] LABS: Albumin 3.5 g/dL (3.4-5.0); BUN/Creatinine Ratio 21.4; Phosphorus 3.9 mg/dL (2.5-4.90); Potassium 4.1 mmol/L (3.5-5.1)
[2022-09-19 09:00] VITALS: BP 139/43
[2022-09-19] MEDS: levoFLOXacin 500MG 100 ML IV SCH (10:00)
[2022-09-19] MEDS: MULTIPLE VITAMIN TAB PO SCH (11:42)
[2022-09-19] MEDS: ASCORBIC ACID 500 MG TAB PO SCH ×2 (11:42→21:30)
[2022-09-19] MEDS: ZINC SULFATE 220mg CAP or TAB PO SCH (11:42)
[2022-09-19] MEDS: ASPirin 81 mg TAB PO SCH (11:42)
[2022-09-19] MEDS: ENOXAPARIN SOD 40 MG/0.4 ML SYRINGE SC SCH (11:43)
[2022-09-19 13:00] VITALS: BP 169/81
[2022-09-19 17:00] VITALS: BP 151/73
[2022-09-19] MEDS: HYDROcodone-ACET 5/325MG TAB PO PRN (21:30)
[2022-09-19 22:00] VITALS: BP 129/76
[2022-09-19] MEDS ORDERED: diphenhdrAMINE HCL 25 MG CAP PO ONE (22:45)
[2022-09-20] MEDS: VANCOMYCIN 1GM/250ML 250 ML IV SCH ×2 (00:02→08:00)
[2022-09-20] MEDS: MORPHINE SULFATE INJ 2 MG/ml SYRG IV PRN ×5 (00:34→22:13)
[2022-09-20 05:00] VITALS: BP 158/85
[2022-09-20 05:45] LABS: Albumin 3.1 g/dL (3.4-5.0)
[2022-09-20 05:48] LABS: Calcium 8.6 mg/dL (8.5-10.1); Phosphorus 3.6 mg/dL (2.5-4.90)
[2022-09-20 09:00] VITALS: BP 146/79
[2022-09-20] MEDS: MULTIPLE VITAMIN TAB PO SCH (09:43)
[2022-09-20] MEDS: ASPirin 81 mg TAB PO SCH (09:43)
[2022-09-20] MEDS: ASCORBIC ACID 500 MG TAB PO SCH ×2 (09:43→22:10)
[2022-09-20] MEDS: ENOXAPARIN SOD 40 MG/0.4 ML SYRINGE SC SCH (09:44)
[2022-09-20] MEDS: ZINC SULFATE 220mg CAP or TAB PO SCH (09:44)
[2022-09-20] MEDS: levoFLOXacin 500MG 100 ML IV SCH (10:00)
[2022-09-20 13:00] VITALS: BP 146/78
[2022-09-20] MEDS: SODIUM CHLORIDE 0.9% 1,000 ML IV SCH (16:05)
[2022-09-20 17:00] VITALS: BP 146/77
[2022-09-20] MEDS: HYDROcodone-ACET 5/325MG TAB PO PRN (19:50)
[2022-09-20 22:00] VITALS: BP 142/72
[2022-09-20] MEDS: TRIAMCINOLONE ACET 0.1% TOPICAL CREAM 15GM TOP SCH (23:59)
[2022-09-21] MEDS: VANCOMYCIN 1GM/250ML 250 ML IV SCH ×2 (02:08→12:00)
[2022-09-21 05:00] VITALS: BP 154/74
[2022-09-21 06:30] LABS: Albumin 3.4 g/dL (3.4-5.0); BUN/Creatinine Ratio 22.4; Calcium 8.7 mg/dL (8.5-10.1); Phosphorus 4.1 mg/dL (2.5-4.90)
[2022-09-21] MEDS: SODIUM CHLORIDE 0.9% 1,000 ML IV SCH (08:14)
[2022-09-21] MEDS: MORPHINE SULFATE INJ 2 MG/ml SYRG IV PRN (08:14)
[2022-09-21 09:00] VITALS: BP 125/76
[2022-09-21] MEDS ORDERED: CLOT1CRE56 TOP (11:43)
[2022-09-21] MEDS ORDERED: LEVO500T31 PO (11:43)
[2022-09-21] MEDS ORDERED: TRI05TP TOP (11:43)
[2022-09-21] MEDS: ASPirin 81 mg TAB PO SCH (12:04)
[2022-09-21] MEDS: ZINC SULFATE 220mg CAP or TAB PO SCH (12:05)
[2022-09-21] MEDS: MULTIPLE VITAMIN TAB PO SCH (12:05)
[2022-09-21] MEDS: ENOXAPARIN SOD 40 MG/0.4 ML SYRINGE SC SCH (12:05)
[2022-09-21] MEDS: ASCORBIC ACID 500 MG TAB PO SCH (12:05)
[2022-09-21] MEDS: levoFLOXacin 500MG 100 ML IV SCH (12:06)
[2022-09-21] MEDS: HYDROcodone-ACET 5/325MG TAB PO PRN (12:16)
[2022-09-21 13:00] VITALS: BP 155/83
[2022-09-21 15:04] VITALS: BP 155/83
[2022-09-21] MEDS: CLOTRIMAZOLE 1 % CREAM 15GM TOP SCH ×2 (16:24)
[2022-09-21] MEDS: TRIAMCINOLONE ACET 0.1% TOPICAL CREAM 15GM TOP SCH (16:24)
== END 2022-09-21 17:26 | disposition home or self-care (01) | DRG 383 ==
LOC: ER 12:57 → OVERFLOW 09-17 04:46 → WEST WING 09-17 14:52
PROVIDERS: ADMIT Nurse Practitioner Family; ATTEND Family Medicine
DX: L03.115 Cellulitis of right lower limb (principal); L97.519 Non-pressure chronic ulcer of other part of right foot with unspecified severity; E66.01 Morbid (severe) obesity due to excess calories; F17.210 Nicotine dependence, cigarettes, uncomplicated; I10 Essential (primary) hypertension; L03.116 Cellulitis of left lower limb; I25.10 Atherosclerotic heart disease of native coronary artery without angina pectoris; R79.82 Elevated C-reactive protein (CRP); S81.802A Unspecified open wound, left lower leg, initial encounter; Z20.822 Contact with and (suspected) exposure to COVID-19; S81.801A Unspecified open wound, right lower leg, initial encounter; X58.XXXA Exposure to other specified factors, initial encounter; Z91.199 Patient's noncompliance with other medical treatment and regimen due to unspecified reason; Z86.73 Personal history of transient ischemic attack (TIA), and cerebral infarction without residual deficits; Z88.0 Allergy status to penicillin; Z95.2 Presence of prosthetic heart valve; Z68.35 Body mass index [BMI] 35.0-35.9, adult; Z82.3 Family history of stroke; Z82.49 Family history of ischemic heart disease and other diseases of the circulatory system; Y93.89 Activity, other specified; Y92.89 Other specified places as the place of occurrence of the external cause; Y99.8 Other external cause status; Z90.49 Acquired absence of other specified parts of digestive tract; Z89.431 Acquired absence of right foot
CPT/HCPCS: 36415; 71045; 73590; 73620; 80053; 80069; 80202; 80307; 81003; 85025; 85652; 86141; 87077; 87186; 87205; 87426; 93925; G0378; J0696; J1956; J7060; Q0162

== ENCOUNTER 2025-10-02 15:14 | Inpatient (IN) | payer OTHER ==
[~2025-10-02] VITALS: Ht 188 cm; Wt 117.9 kg
[2025-10-02 03:40] VITALS: BP 167/87; PULSE 72; RESP 17; TEMP 98.1; O2SAT 98
[~2025-10-02 15:14] MED LIST changes: +ATOR20TA50 PO; -CLIN300C8 PO; +GABA-1250 PO; +HYDR-4798 PO; -HYDR-4902 PO; +LISI20TA56 PO; -METO-158 PO; +METO-159 PO; +MORP15TA PO; +OMEP20TA PO; +TIZA4CAP PO
--- NOTE | 2025-10-02 15:41 | ED.PDOC ---
Musculoskeletal HPI Comments HPI: Past medical history: Past surgical history: Medications: Allergies: Social history: Denies ETOH, denies tobacco use, denies drug use JOEL: HPI: Poor Historian. See 5-year-old male brought in by ambulance from the vascular doctor's office to be admitted for IV antibiotics. Patient presented to the clinic for leg injection foam sclerotherapy treatment. Noted iodine prep on the right lower extremity. It is noted in the documents the patient had some pain in his leg prior to the procedure denies any fever chills. Is also noted some redness and swelling. Patient is not diabetic. Patient has severe peripheral vascular disease and venous insufficiency. When they in a patient has a healed right- sided TMA as well as larger wound on the right anterior lateral aspect of the rodriguez silver nitrate was used also. Past Medical History: She, venous insufficiency, peripheral vascular disease, leg wound ulcers. Past Surgical History: Far prosthetic valve. Foot amputation, right leg sclerotherapy. Back surgeries She is to penicillin. REVIEW OF SYSTEMS: CONSTITUTIONAL: Denies acute: fever, diaphoresis, chills, generalized weakness. HEAD: Denies acute: headache, photophobia Eyes: Denies acute: Double vision, vision loss, eye pain, eye discharge. EARS: Denies acute: tinnitus, hearing loss, ear discharge, ear pain, THROAT: Denies acute: sore throat, swelling, difficulty swallowing , pain with swallowing, change in voice. NECK: Denies acute: neck pain, neck swelling, stiff neck. HEART: Denies acute : chest pain, palpitations, LUNGS: Denies acute: SOB, wheezing, cough, hemoptysis ABDOMEN: Denies acute: abdominal pain, Nausea, Vomiting, diarrhea, melena , hematemesis, hematochezia SKIN: Denies acute: rash, redness, lesions, itchiness. EXTREMITIES: Denies acute: calf pain, numbness, tingling, weakness, denies pain in extremity. Denies acute: Low back pain. Neuro: Denies acute: focal neurological deficit, motor or sensory focal neurological deficit, tremors, seizure like activity, confusion, dizziness, change in mental status, loss of bowel or bladder function, cauda equina like symptoms. : Denies acute: dysuria, hematuria, flank pain, increase in urinary frequency. PSYCH: Denies acute: hallucination, suicidal ideation, homicidal ideation. PHYSICAL EXAM: General: ----no----acute distress, awake and alert. Head: normocephalic, atraumatic. No raccoon's eyes, no dhaliwal sign. Neck: supple, trachea is midline, no swelling. Throat: Normal phonation. Eyes:, no erythema, no purulent discharge, no proptosis, no icterus. Heart: regular rate, regular rhythm, no significant murmur appreciated. Lungs: no apparent respiratory distress, Able to speak in full sentences. No wheezing, no rhonchi, no crackles. No stridors Clear to auscultation bilaterally. Abdomen: non tender to palpation, non distended, soft, no guarding, no rebound, + bowel sounds. Neuro: Awake, Alert, oriented to name, self, situation, follows commands GCS=15. Speech is normal. Skin: no petechia, no purpura, no cyanosis, non-pale, not jaundice. Lower extremities: --/ b/l- Pitting edema no deformity, no focal swelling, no calf TTP. Evaluation of the area of complaint: Right lower extremity foot and ankle is wrapped with a wound dressing . Left foot has amputation. Makes eye contact. moves all four extremities. ED COURSE: DISCLAIMER: This medical document was created using an electronic medical record system with voice recognition software and computerized dictation system. Although this document has been carefully reviewed, there might still be some phonetic and typographical errors. Occasional wrong-word or "sound-alike" substitutions may have occurred due to the inherent limitations of voice recognition software. These areas are purely typographical due to imperfections of the software programs and do not reflect any compromise in the patient's medical care. Please read the chart carefully and recognize, using context, where these substitutions have occurred. Chief Complaint: Lower Extremity Time Seen by MD: 15:35 Primary Care Provider: NONE Reviewed Notes: Medications, Allergies Allergies: Coded Allergies: Penicillins (Verified Allergy, Unknown, 08/05/21) Home Meds Active Scripts Hydrocodone-Acetaminophen (Hydrocodone Bitartrate/AC 5-325 mg) 1 Tab Tab, 1 TAB PO QID PRN, #40 TAB Prov:CINTHIA TUTTLE MD 10/05/25 Levofloxacin Hemihydrate (LEVOFLOXACIN) 750 Mg Tab, 1 TAB PO DAILY, #30 TAB Prov:CINTHIA TUTTLE MD 10/05/25 Reported Medications Sulfamethoxazole W/Trimethopri (Bactrim Ds Tablet) 1 Tab Tb, 1 TAB PO BID, TAB 10/03/25 Mupirocin (Pseudomonas Fluores (Mupirocin) 2 % Oin, TOP 10/03/25 Ciprofloxacin Hcl (Ciprofloxacin Hcl) 500 Mg Tab, 1 TAB PO BID 10/03/25 Nifedipine (Nifedipine Er) 30 Mg Tab, 1 TAB PO DAILY 10/03/25 Gabapentin (Gabapentin) 300 Mg Cap, 300 MG PO TID, CAP 07/21/23 Atorvastatin Calcium (ATORVASTATIN CALCIUM) 20 Mg Tab, 20 MG PO DAILY, TAB 07/21/23 Lisinopril (Lisinopril) 20 Mg Tab, 20 MG PO DAILY, TAB 07/21/23 Hydrocodone-Acetaminophen (Hydrocodone Bitartrate/AC 10-325 mg) 1 Tab Tab, 1 TAB PO TID, TAB 07/21/23 Omeprazole (Gnp Omeprazole) 20 Mg Tab, 20 MG PO DAILY, TAB 07/21/23 Tizanidine Hydrochloride (Zanaflex) 4 Mg Cap, 4 MG PO TID, CAP 07/21/23 Morphine Sulfate (Morphine Sulfate) 15 Mg Tab, 15 MG PO BID, TAB 07/21/23 Metoprolol Tartrate (Metoprolol Tartrate) 100 Mg Tab, 100 MG PO BID, TAB 07/21/23 Aspirin (Aspir-Low) 81 Mg Tab, 81 MG PO DAILY for 30 Days, MG 08/05/21 Information Source: Patient, Emergency Med Personnel Mode of Arrival: EMS Brought in by: EMS Past Medical History PAST MEDICAL HISTORY: CVA, HTN Surgical History: Appendectomy, Cholecystectomy Family History Family History: Unknown Social History Smoker: Cigarettes Alcohol: Denies ETOH Use Drugs: Denies Drug Use Lives In: Home Was a procedure done? Was a procedure done?: No Differential Diagnosis EXT Differential Diagnosis: Other (Leg swellingDdx include but not limited to DVT, ischemic limb, pitting edema, volume overload, CHF, cellulitis, hematoma, compartment syndrome, dependent edema, venous stasis. Necrotizing fasciitis, abscess, infestation.) Other Differential Diagnosis Osteomyelitis necrotizing fasciitis X-Ray, Labs, Meds, VS Vital Signs Date Time Temp Pulse Resp B/P (MAP) Pulse Ox O2 Delivery O2 Flow Rate FiO2 10/02/25 22:38 97.9 90 14 157/86 (109) 95 97.9 10/02/25 21:55 90 14 96 Room Air* 0 10/02/25 19:55 97.9 93 16 151/79 (103) 94 97.9 10/02/25 16:42 82 14 95 Room Air* 0 10/02/25 16:42 97.7 82 14 140/84 (102) 95 97.7 10/02/25 15:15 98.2 86 20 156/78 99 98.2 10/02/25 03:40 98.1 72 17 167/87 (113) 98 98.1 Lab Test 10/02/25 15:33 Range/Units White Blood Count 8.5 4.4-10.8 10^3/uL Red Blood Count 5.47 4.5-5.90 10^6/uL Hemoglobin 16.7 13.5-17.5 g/dL Hematocrit 48.6 41.0-53.0 % Mean Corpuscular Volume 88.8 80.0-100.0 fL Mean Corpuscular Hemoglobin 30.4 28.0-32.0 pg Mean Corpuscular Hemoglobin Concent 34.3 32.0-36.0 g/dL Red Cell Distribution Width 15.9 H 11.8-14.3 % Platelet Count 232 140-450 10^3/uL Mean Platelet Volume 8.4 6.9-10.8 fL Neutrophils (%) (Auto) 66.5 37.0-80.0 % Lymphocytes (%) (Auto) 21.4 10.0-50.0 % Monocytes (%) (Auto) 10.0 0.0-12.0 % Eosinophils (%) (Auto) 1.5 0.0-7.0 % Basophils (%) (Auto) 0.6 0.0-2.0 % Neutrophils # (Auto) 5.6 1.6-8.6 10 ^3/uL Lymphocytes # (Auto) 1.8 0.4-5.4 10 ^3/uL Monocytes # (Auto) 0.9 0-1.3 10 ^3/uL Eosinophils # (Auto) 0.1 0-0.8 10 ^3/uL Basophils # (Auto) 0 0-0.2 10 ^3/uL Nucleated Red Blood Cells 0.3 % Erythrocyte Sedimentation Rate 8 0-20 mm/hr Sodium Level 139 136-145 mmol/L Potassium Level 4.3 3.5-5.1 mmol/L Chloride Level 102 98-107 mmol/L Carbon Dioxide Level 26 20-31 mmol/L Anion Gap 11 5-15 Blood Urea Nitrogen 16 9-23 mg/dL Creatinine 0.90 0.700-1.30 mg/dL Glomerular Filtration Rate Calc 102 >90 mL/min BUN/Creatinine Ratio 17.8 10.0-20.0 Serum Glucose 70 L 74-106 mg/dL Lactic Acid Level 1.5 0.4-2.0 mmol/L Calcium Level 9.6 8.7-10.4 mg/dL Total Bilirubin 0.9 0.2-1.0 mg/dL Aspartate Amino Transferase (AST) 39 13-40 U/L Alanine Aminotransferase (ALT) 25 7-40 U/L Alkaline Phosphatase 89 46-116 U/L C-Reactive Protein High Sensitivity 0.99 <1.0 mg/dL Total Protein 7.6 5.7-8.2 g/dL Albumin 4.7 3.2-4.8 g/dL Microbiology Date/Time Source Procedure Growth Status 10/02/25 18:22 Blood Blood Culture - Final NO GROWTH AFTER [address] [facility] 10/02/25 17:57 Blood Blood Culture - Final NO GROWTH AFTER 5 DAYS OF INCUBATION. [place] [address] Ph: [phone] DIAGNOSTIC IMAGING Diagnostic Imaging Report : [id number] Signed PATIENT: DUANE JOELCCT: [id number] UNIT: [id number] : 1970 LOC: ER ROOM / BED: / AGE / SEX: 55 / M ADM STATUS: REG ER SERVICE 1519 ORDERING PHYSICIAN: KETTY NEWTON DO PROCEDURE(s): BLDVT - BiLat Lower DVT REASON: b/l wound ORDER NUMBER(s): [id number], ACCESSION NUMBER(s): [id number] US BiLat Lower DVT HISTORY: b/l wound COMPARISON: BI LOWER DVT on DOS: 10/30/21 TECHNIQUE: Realtime grayscale, color flow, and Doppler ultrasound images of the deep venous structures with spectral waveform analysis were obtained. Doppler spectral waveform analysis of the bilateral lower extremity veins was performed. FINDINGS: Right Lower Extremity: Right common femoral vein: Normal compressibility and flow. Right femoral vein: Normal compressibility and flow. Right popliteal vein: Normal compressibility and flow. Left Lower Extremity: Left common femoral vein: Normal compressibility and flow. Left femoral vein: Normal compressibility and flow. Left popliteal vein: Normal compressibility and flow. IMPRESSION: NO SONOGRAPHIC EVIDENCE FOR DEEP VENOUS THROMBOSIS IN THE BILATERAL LOWER EXTREMITY VEINS. ATED BY: ALEXANDER LORA MD DICTATED DATE/TIME: 10/02/251628 SIGNED BY: ALEXANDER LORA MD SIGNED DATE/TIME: 10/02/251628 CC: Time of 1ST Reevaluation: 00:00 Reevaluation 1ST: N/A Patient Education/Counseling: Diagnosis, Treatment Family Education/Counseling: No Family Present Comments MDM: patient presented with the above HPI.---foot ulcer/wound/cellulitis---workup was initiated. patient was found with the above mentioned diagnosis. the following medications were ordered: please refer to order lists of meds and tests obtained by myself Dr. Newton. Patient ED course and VS have been stabilized. Patient has been reassessed in the ED and remained in a stable condition. Pertinent incidental findings were discussed with the patient and/or family. Patient/family voices understanding and is agreeable with plan. Patient has been observed in the ED adequate length of time to insure improvement/stability. Escalation of care considered: Consideration of escalation to observation or admission Patient was ADMITTED to the medicine team for further evaluation and treatment of their presentation. All the reports of any imaging studies that were ordered by myself were reviewed by myself. Sepsis Sepsis Reasesment Focused Exam Orders: Laboratory Tests 10/02/25 15:33: Lactic Acid Level 1.5 Departure 1 Departure Time of Disposition: 17:28 Impression: Primary Impression: Foot ulcer, left Additional Impressions: Cellulitis of foot Peripheral vascular disease Disposition: ADMITTED INPATIENT Admit to: [facility] Condition: Guarded Additional Instructions: e-Prescriptions Hydrocodone-Acetaminophen (Hydrocodone Bitartrate/AC 5-325 mg) 1 Tab Tab 1 TAB PO QID PRN, #40 TAB Prov: CINTHIA TUTTLE MD 10/05/25 Levofloxacin Hemihydrate (LEVOFLOXACIN) 750 Mg Tab 1 TAB PO DAILY, #30 TAB Prov: CINTHIA TUTTLE MD 10/05/25 Discharged With: Self Critical Care Note Critical Care Time?: No I personally scribed for KETTY NEWTON DO ([email or web address]) on 10/02/25 at 15:41. Electronically submitted by Maximilian Jimenez (NICA). I personally scribed for KETTY NEWTON DO ([email or web address]) on 10/02/25 at 18:05. Electronically submitted by Cheryl Bond ([facility]). KETTY NEWTON DO Oct 02, 2025 15:41
[2025-10-02 15:47] LABS: Hematocrit 48.6 % (41.0-53.0); Hemoglobin 16.7 g/dL (13.5-17.5); Mean Corpuscular Hemoglobin 30.4 pg (28.0-32.0); Mean Corpuscular Volume 88.8 fL (80.0-100.0); Nucleated Red Blood Cells % 0.3 %
[2025-10-02 16:06] LABS: Alanine Aminotransferase 25 U/L (7-40); Albumin 4.7 g/dL (3.2-4.8); Alkaline Phosphatase 89 U/L (46-116); Anion Gap 11 (5-15); BUN/Creatinine Ratio 17.8 (10.0-20.0); Blood Urea Nitrogen 16 mg/dL (9-23); Calcium 9.6 mg/dL (8.7-10.4); Carbon Dioxide 26 mmol/L (20-31); Chloride 102 mmol/L (98-107); Potassium 4.3 mmol/L (3.5-5.1); Sodium 139 mmol/L (136-145); Total Protein 7.6 g/dL (5.7-8.2)
[2025-10-02 16:07] LABS: Bilirubin, Total 0.9 mg/dL (0.2-1.0)
[2025-10-02 16:08] LABS: Glucose 70 mg/dL (74-106)
--- NOTE | 2025-10-02 16:31 | DVH ---
US BiLat Lower DVT HISTORY: b/l wound COMPARISON: BI LOWER DVT on DOS: 10/30/21 TECHNIQUE: Realtime grayscale, color flow, and Doppler ultrasound images of the deep venous structures with spectral waveform analysis were obtained. Doppler spectral waveform analysis of the bilateral lower extremity veins was performed. FINDINGS: Right Lower Extremity: Right common femoral vein: Normal compressibility and flow. Right femoral vein: Normal compressibility and flow. Right popliteal vein: Normal compressibility and flow. Left Lower Extremity: Left common femoral vein: Normal compressibility and flow. Left femoral vein: Normal compressibility and flow. Left popliteal vein: Normal compressibility and flow. IMPRESSION: NO SONOGRAPHIC EVIDENCE FOR DEEP VENOUS THROMBOSIS IN THE BILATERAL LOWER EXTREMITY VEINS.
[2025-10-02 16:42] VITALS: PULSE 82; RESP 14; O2SAT 95
[2025-10-02] MEDS: VANCOMYCIN 1GM/250ML KIT 250 ML IV ONE (18:52)
[2025-10-02 21:55] VITALS: PULSE 90; RESP 14; O2SAT 96
[2025-10-02] MEDS: HYDROcodone-ACET 10/325MG TAB PO ONE (23:48)
[2025-10-03] MEDS ORDERED: VANCOMYCIN PER PHARMACY 0 MG IV SCH (01:15)
[2025-10-03] MEDS ORDERED: ACETAMINOPHEN 325 MG TAB PO PRN (01:15)
[2025-10-03] MEDS ORDERED: TEMAZEPAM 15 MG CAP PO PRN (01:15)
[2025-10-03] MEDS ORDERED: ONDANSETRON HCL 4 MG/2 ML VIAL IV PRN (01:15)
[2025-10-03] MEDS: VANCOMYCIN 1GM/250ML IV ONE (01:59)
[2025-10-03] MEDS ORDERED: NIFE1TAB31 PO (03:42)
[2025-10-03] MEDS ORDERED: MUPI2OIN2 TOP (03:42)
[2025-10-03] MEDS ORDERED: CIPR500T4 PO (03:42)
[2025-10-03] MEDS: MORPHINE SULFATE 4 MG/ML SYR/VIAL IV PRN (03:59)
[2025-10-03] MEDS ORDERED: BACDST PO (04:03)
--- NOTE | 2025-10-03 04:57 | DVHHP2 ---
History of Present Illness Reason for Visit: Left lower extremity redness History of Present Illness 55-year-old male presents for evaluation of left lower extremity redness. Patient reports being seen by vascular specialty yesterday for sclerotherapy. Provider at the center advised the patient to present to the emergency dep artment for evaluation and possible IV antibiotic due to increased redness to left lower extremity. Patient does have a history of peripheral vascular disease. Patient was advised to follow up with vascular once discharged. Patient denies fever or chills. He reports worsening pain to left lower extremity. Past Medical History Peripheral vascular disease, hypertension, dyslipidemia Review of Systems Review of Systems Review of systems are currently negative otherwise addressed in HPI. Allergies: Coded Allergies: Penicillins (Verified Allergy, Unknown, 08/05/21) Medications Current Medications Medications Dose Ordered Sig/Sandoval Route Start Time Stop Time Status Last Admin Dose Admin Levofloxacin/ Dextrose 100 ml @ 100 mls/hr DAILY IV 10/03/25 10:00 Vancomycin HCl 0 ml @ 0 mls/hr PER PHARMACY IV 10/03/25 01:15 UNV Lisinopril 20 mg DAILY PO 10/03/25 10:00 Metoprolol Tartrate 50 mg BID PO 10/03/25 10:00 Atorvastatin Calcium 20 mg HS PO 10/03/25 22:00 Gabapentin 300 mg TID PO 10/03/25 06:00 Acetaminophen/ Hydrocodone Bitart 1 tab Q4HP PRN PO 10/03/25 01:15 Temazepam 15 mg QHSP PRN PO 10/03/25 01:15 Ondansetron HCl 4 mg Q4HP PRN IV 10/03/25 01:15 Acetaminophen 650 mg Q6HP PRN PO 10/03/25 01:15 Morphine Sulfate 2 mg Q4HPRN PRN IV 10/03/25 01:30 10/03/25 03:59 2 MG Exam Vital Signs Vital Signs Date Time Temp Pulse Resp B/P (MAP) Pulse Ox O2 Delivery O2 Flow Rate FiO2 10/03/25 03:59 72 17 167/87 10/03/25 03:40 Nasal Cannula* 2 28 10/03/25 02:01 96 10/02/25 22:38 97.9 97.9 Exam Gen: 55-year-old male in mild distress Skin: Warm, dry, normal color and texture, no rash. HEENT: Normocephalic atraumatic, mucous membranes moist and pink. Neck: Cervical and supraclavicular nodes normal without enlargement, trachea is midline, thyroid gland is normal without masses. Pulmonary: Clear to auscultation and percussion bilaterally. Cardiac: Regular rate and rhythm. No murmur Abdomen: Soft, nontender, nondistended, bowel sounds present all 4 quadrants, no guarding, no rigidity, no organomegaly. Extremities: No cyanosis, clubbing, left lower extremity redness with tenderness and discoloration to dorsum of foot, right foot wrapped with bandage. Neuro: Cranial nerves II through XII grossly intact, normal affect and speech, no focal motor deficits. Labs/Xrays AGE / SEX: 55 / M ADM STATUS: REG ER SERVICE 1519 ORDERING PHYSICIAN: KETTY ENWTON DO PROCEDURE(s): BLDVT - BiLat Lower DVT REASON: b/l wound ORDER NUMBER(s): [id number], ACCESSION NUMBER(s): [id number] US BiLat Lower DVT HISTORY: b/l wound COMPARISON: BI LOWER DVT on DOS: 10/30/21 TECHNIQUE: Realtime grayscale, color flow, and Doppler ultrasound images of the deep venous structures with spectral waveform analysis were obtained. Doppler spectral waveform analysis of the bilateral lower extremity veins was performed. FINDINGS: Right Lower Extremity: Right common femoral vein: Normal compressibility and flow. Right femoral vein: Normal compressibility and flow. Right popliteal vein: Normal compressibility and flow. Left Lower Extremity: Left common femoral vein: Normal compressibility and flow. Left femoral vein: Normal compressibility and flow. Left popliteal vein: Normal compressibility and flow. IMPRESSION: NO SONOGRAPHIC EVIDENCE FOR DEEP VENOUS THROMBOSIS IN THE BILATERAL LOWER EXTREMITY VEINS. Labs Test 10/02/25 15:33 Range/Units White Blood Count 8.5 4.4-10.8 10^3/uL Red Blood Count 5.47 4.5-5.90 10^6/uL Hemoglobin 16.7 13.5-17.5 g/dL Hematocrit 48.6 41.0-53.0 % Mean Corpuscular Volume 88.8 80.0-100.0 fL Mean Corpuscular Hemoglobin 30.4 28.0-32.0 pg Mean Corpuscular Hemoglobin Concent 34.3 32.0-36.0 g/dL Red Cell Distribution Width 15.9 H 11.8-14.3 % Platelet Count 232 140-450 10^3/uL Mean Platelet Volume 8.4 6.9-10.8 fL Neutrophils (%) (Auto) 66.5 37.0-80.0 % Lymphocytes (%) (Auto) 21.4 10.0-50.0 % Monocytes (%) (Auto) 10.0 0.0-12.0 % Eosinophils (%) (Auto) 1.5 0.0-7.0 % Basophils (%) (Auto) 0.6 0.0-2.0 % Neutrophils # (Auto) 5.6 1.6-8.6 10 ^3/uL Lymphocytes # (Auto) 1.8 0.4-5.4 10 ^3/uL Monocytes # (Auto) 0.9 0-1.3 10 ^3/uL Eosinophils # (Auto) 0.1 0-0.8 10 ^3/uL Basophils # (Auto) 0 0-0.2 10 ^3/uL Nucleated Red Blood Cells 0.3 % Erythrocyte Sedimentation Rate 8 0-20 mm/hr Sodium Level 139 136-145 mmol/L Potassium Level 4.3 3.5-5.1 mmol/L Chloride Level 102 98-107 mmol/L Carbon Dioxide Level 26 20-31 mmol/L Anion Gap 11 5-15 Blood Urea Nitrogen 16 9-23 mg/dL Creatinine 0.90 0.700-1.30 mg/dL Glomerular Filtration Rate Calc 102 >90 mL/min BUN/Creatinine Ratio 17.8 10.0-20.0 Serum Glucose 70 L 74-106 mg/dL Lactic Acid Level 1.5 0.4-2.0 mmol/L Calcium Level 9.6 8.7-10.4 mg/dL Total Bilirubin 0.9 0.2-1.0 mg/dL Aspartate Amino Transferase (AST) 39 13-40 U/L Alanine Aminotransferase (ALT) 25 7-40 U/L Alkaline Phosphatase 89 46-116 U/L C-Reactive Protein High Sensitivity 0.99 <1.0 mg/dL Total Protein 7.6 5.7-8.2 g/dL Albumin 4.7 3.2-4.8 g/dL SEPSIS Sepsis Screen Date sepsis recognized/suspect: Oct 02, 2025 Time Sepsis recognized/suspect: 2237 Recent Procedure: No On Antibiotic Therapy: No Respiratory Rate >20: No Heart Rate >90: No Temp<36 C (96.8 F) or >38.3 C: No SBP <90 or MAP <65 mmHG: Yes New Acute Mental Status Change: No Is the patient on CPAP, BIPAP,: No Physician Orders Admit (10/02/25 23:53) Levofloxacin 500mg (Levaquin 500mg/ 100m (10/03/25 10:00) Vancomycin Per Pharmacy (10/03/25 01:15) Lisinopril Tablet (Zestril Tablet) (10/03/25 10:00) Metoprolol Tartrate Tablet (Lopressor Ta (10/03/25 10:00) Atorvastatin (Lipitor) (10/03/25 22:00) Gabapentin Capsule (Neurontin Capsule) (10/03/25 06:00) Hydrocodone-Acet 5/325mg Tab ([place] 5/32 (10/03/25 01:15) Temazepam (Restoril) (10/03/25 01:15) Ondansetron Hcl (Zofran) (10/03/25 01:15) Complete Blood Count (10/04/25 04:00) Cardiac Diet-2gna,Lofat,Lochol (10/03/25 Breakfast) Condition: Stable (10/03/25 01:12) Acetaminophen Tablet (Tylenol Tablet) (10/03/25 01:15) Bedrest With Bathroom Privileg (10/03/25 01:12) Morphine Sulfate Injection (10/03/25 01:30) *Podiatry Consult Musson(Dvmg) (10/03/25 04:50) Vital Signs Date Time Temp Pulse Resp B/P (MAP) Pulse Ox O2 Delivery O2 Flow Rate FiO2 10/03/25 03:59 72 17 167/87 10/03/25 03:40 Nasal Cannula* 2 28 10/03/25 02:01 80 14 177/80 (112) 96 10/03/25 00:00 85 20 153/84 (107) 90 10/02/25 22:38 97.9 90 14 157/86 (109) 95 97.9 10/02/25 21:55 90 14 96 Room Air* 0 21 Medications Medications Dose Ordered Sig/Sandoval Route Start Time Stop Time Status Last Admin Dose Admin Acetaminophen/ Hydrocodone Bitart 1 tab ONCE ONCE PO 10/02/25 23:00 10/02/25 23:01 DC 10/02/25 23:48 1 TAB Morphine Sulfate 2 mg Q4HPRN PRN IV 10/03/25 01:30 10/03/25 03:59 2 MG Vancomycin HCl 250 ml @ 250 mls/hr ONCE ONCE IV 10/03/25 01:30 10/03/25 02:29 DC 10/03/25 01:59 250 MLS/HR Assessment/Plan Assessment/Plan Assessment Left lower extremity cellulitis Peripheral vascular disease Hypertension Plan Admit the patient to [facility] to the hospitalist Rocephin/clindamycin Blood culture pending Podiatry consult Pain management Resume home medications Continue treatment per orders. Plan discussed with: Patient My Orders Orders - SATNAM PACECNErnesto Procedure Category Date Status Time Admit ADMIT 10/02/25 Transmitted 23:53 Levofloxacin 500mg PHA 10/03/25 In Process (Levaquin 500mg/ 100m 10:00 Vancomycin Per PHA 10/03/25 Pending Pharmacy 01:15 Lisinopril Tablet PHA 10/03/25 In Process (Zestril Tablet) 10:00 Metoprolol Tartrate PHA 10/03/25 In Process Tablet (Lopressor Ta 10:00 Atorvastatin (Lipitor) PHA 10/03/25 In Process 22:00 Gabapentin Capsule PHA 10/03/25 In Process (Neurontin Capsule) 06:00 Hydrocodone-Acet PHA 10/03/25 In Process 5/325mg Tab ([place] 01:15 Temazepam (Restoril) PHA 10/03/25 In Process 01:15 Ondansetron Hcl PHA 10/03/25 In Process (Zofran) 01:15 Complete Blood Count LAB 10/04/25 Verified 04:00 Cardiac DIET 10/03/25 Transmitted Diet-2gna,Lofat,Lochol Breakfast Condition: Stable [place] 10/03/25 In Process 01:12 Acetaminophen Tablet PHA 10/03/25 In Process (Tylenol Tablet) 01:15 Bedrest With Bathroom [place] 10/03/25 In Process Privileg 01:12 Morphine Sulfate PHA 10/03/25 In Process Injection 01:30 *Podiatry Consult CONS 10/03/25 Verified Sandyon(Dvmg) 04:50 Date of Service: Oct 03, 2025 Billing Provider: SATNAM PACE Common Visit Codes: [id number] INP/OBS CARE (MOD) SATNAM PACE Oct 03, 2025 04:57
[2025-10-03 05:00] VITALS: BP 139/90; PULSE 73; RESP 17; TEMP 97.6; O2SAT 98
[2025-10-03] MEDS: GABAPENTIN 300 MG CAP PO SCH (05:37)
[2025-10-03 08:42] VITALS: BP 141/76; PULSE 79; RESP 17; TEMP 98.2; O2SAT 100
[2025-10-03] MEDS: LISINOPRIL 20 MG TAB PO SCH (09:29)
[2025-10-03] MEDS: VANCOMYCIN 1GM/250ML KIT 250 ML IV SCH (09:44)
[2025-10-03] MEDS ORDERED: METOPROLOL TARTRATE 50 MG TAB PO SCH (10:00)
[2025-10-03] MEDS: HYDROcodone-ACET 5/325MG TAB PO PRN (10:07)
--- NOTE | 2025-10-03 11:43 | DVHPN2 ---
Changes from previous H/P or p: No Changes Objective Vitals Vital Signs Date Time Temp Pulse Resp B/P (MAP) Pulse Ox O2 Delivery O2 Flow Rate FiO2 10/03/25 09:29 141/76 10/03/25 08:42 98.2 79 17 100 98.2 10/03/25 08:10 Nasal Cannula* 2 28 Intake/Output Intake and Output 10/03/25 07:00 Intake Total 780 ml Output Total 1 ml Balance 779 ml Intake Oral 280 ml IV Total 500 ml Output Urine Total 1 ml Medications Current Medications Medications Dose Ordered Sig/Sandoval Route Start Time Stop Time Status Last Admin Dose Admin Levofloxacin/ Dextrose 100 ml @ 100 mls/hr DAILY IV 10/03/25 10:00 10/03/25 09:28 100 MLS/HR Vancomycin HCl 0 ml @ 0 mls/hr PER PHARMACY IV 10/03/25 01:15 Lisinopril 20 mg DAILY PO 10/03/25 10:00 10/03/25 09:29 20 MG Atorvastatin Calcium 20 mg HS PO 10/03/25 22:00 Gabapentin 300 mg TID PO 10/03/25 06:00 10/03/25 05:37 300 MG Acetaminophen/ Hydrocodone Bitart 1 tab Q4HP PRN PO 10/03/25 01:15 10/03/25 10:07 1 TAB Temazepam 15 mg QHSP PRN PO 10/03/25 01:15 Ondansetron HCl 4 mg Q4HP PRN IV 10/03/25 01:15 Acetaminophen 650 mg Q6HP PRN PO 10/03/25 01:15 Morphine Sulfate 2 mg Q4HPRN PRN IV 10/03/25 01:30 10/03/25 03:59 2 MG Nifedipine 30 mg DAILY PO 10/03/25 10:00 10/03/25 09:29 30 MG Vancomycin HCl 250 ml @ 250 mls/hr Q8H IV 10/03/25 10:00 10/03/25 09:44 250 MLS/HR Laboratory Results Laboratory Tests 10/02/25 15:33 10/03/25 09:54 Chemistry Test 10/02/25 15:33 Albumin 4.7 g/dL (3.2-4.8) Calcium Level 9.6 mg/dL (8.7-10.4) Total Protein 7.6 g/dL (5.7-8.2) LFT Test 10/02/25 15:33 Alanine Aminotransferase (ALT) 25 U/L (7-40) Alkaline Phosphatase 89 U/L (46-116) Aspartate Amino Transferase (AST) 39 U/L (13-40) Total Bilirubin 0.9 mg/dL (0.2-1.0) Labs and/or images reviewed: Labs reviewed by me, Image(s) reviewed by me Assessment/Plan Assessment/Plan Cellulitis left upper extremity: Vancomycin Levaquin DVT ruled out bilateral lower extremities Hypertension: Lisinopril Procardia History of peripheral arterial disease Hypercholesterolemia: Lipitor Time spent 50 minutes Plan discussed with: Patient Date of Service: Oct 03, 2025 Billing Provider: CINTHIA TUTTLE MD Common Visit Codes: [id number] INP/OBS CARE(HIGH) CINTHIA TUTTLE MD Oct 03, 2025 11:43
[2025-10-03 12:50] VITALS: BP 128/73; PULSE 84; RESP 17; TEMP 98.3; O2SAT 95
--- NOTE | 2025-10-03 12:54 | DVHCONRES ---
Date Seen: Oct 03, 2025 Reason for Consultation Bilateral foot wounds History of Present Illness 55-year-old male presents for evaluation of left lower extremity redness. Patient reports being seen by vascular specialty yesterday for sclerotherapy. Provider at the center advised the patient to present to the emergency department for evaluation and possible IV antibiotic due to increased redness to left lower extremity. Patient does have a history of peripheral vascular disease. Patient was advised to follow up with vascular once discharged. Patient denies fever or chills. He reports worsening pain to left lower extremity. Past Medical History See H&P Past Surgical History See H&P Family History: FH: heart attack G8 MOTHER FH: heart failure G8 MOTHER FH: stroke G8 MOTHER Suicide G8 SISTER, Onset: - Allergies: Coded Allergies: Penicillins (Verified Allergy, Unknown, 08/05/21) Home Meds Reported Medications Sulfamethoxazole W/Trimethopri (Bactrim Ds Tablet) 1 Tab Tb, 1 TAB PO BID, TAB 10/03/25 Mupirocin (Pseudomonas Fluores (Mupirocin) 2 % Oin, TOP 10/03/25 Ciprofloxacin Hcl (Ciprofloxacin Hcl) 500 Mg Tab, 1 TAB PO BID 10/03/25 Nifedipine (Nifedipine Er) 30 Mg Tab, 1 TAB PO DAILY 10/03/25 Gabapentin (Gabapentin) 300 Mg Cap, 300 MG PO TID, CAP 07/21/23 Atorvastatin Calcium (ATORVASTATIN CALCIUM) 20 Mg Tab, 20 MG PO DAILY, TAB 07/21/23 Lisinopril (Lisinopril) 20 Mg Tab, 20 MG PO DAILY, TAB 07/21/23 Hydrocodone-Acetaminophen (Hydrocodone Bitartrate/AC 10-325 mg) 1 Tab Tab, 1 TAB PO TID, TAB 07/21/23 Omeprazole (Gnp Omeprazole) 20 Mg Tab, 20 MG PO DAILY, TAB 07/21/23 Tizanidine Hydrochloride (Zanaflex) 4 Mg Cap, 4 MG PO TID, CAP 07/21/23 Morphine Sulfate (Morphine Sulfate) 15 Mg Tab, 15 MG PO BID, TAB 07/21/23 Metoprolol Tartrate (Metoprolol Tartrate) 100 Mg Tab, 100 MG PO BID, TAB 07/21/23 Aspirin (Aspir-Low) 81 Mg Tab, 81 MG PO DAILY for 30 Days, MG 10/20/21 Current Medications Current Medications Medications (Trade) Dose Ordered Sig/Sandoval Route PRN Reason Start Time Stop Time Status Last Admin Levofloxacin/ Dextrose 100 ml @ 100 mls/hr DAILY IV 10/03/25 10:00 10/03/25 09:28 Vancomycin HCl 0 ml @ 0 mls/hr PER PHARMACY IV 10/03/25 01:15 Lisinopril (Zestril Tablet) 20 mg DAILY PO 10/03/25 10:00 10/03/25 09:29 Metoprolol Tartrate (Lopressor Tablet) 50 mg BID PO 10/03/25 10:00 10/03/25 04:55 DC Atorvastatin Calcium (Lipitor) 20 mg HS PO 10/03/25 22:00 Gabapentin (Neurontin Capsule) 300 mg TID PO 10/03/25 06:00 10/03/25 05:37 Acetaminophen/ Hydrocodone Bitart ([place] 5/325MG Tab) 1 tab Q4HP PRN PO MODERATE PAIN (4-6 PAIN SCALE) 10/03/25 01:15 10/03/25 10:07 Temazepam (Restoril) 15 mg QHSP PRN PO FOR INSOMNIA 10/03/25 01:15 Ondansetron HCl (Zofran) 4 mg Q4HP PRN IV NAUSEA / VOMITING 10/03/25 01:15 Acetaminophen (Tylenol Tablet) 650 mg Q6HP PRN PO PAIN SCALE 1-3 OR TEMP>100.4 10/03/25 01:15 Morphine Sulfate 2 mg Q4HPRN PRN IV SEVERE PAIN (7-10 PAIN SCALE) 10/03/25 01:30 10/03/25 03:59 Nifedipine (Procardia Xl (Time-Release)) 30 mg DAILY PO 10/03/25 10:00 10/03/25 09:29 Vancomycin HCl 250 ml @ 250 mls/hr Q8H IV 10/03/25 10:00 10/03/25 09:44 Vital Signs Vital Signs Date Time Temp Pulse Resp B/P (MAP) Pulse Ox O2 Delivery O2 Flow Rate FiO2 10/03/25 09:29 141/76 10/03/25 08:42 98.2 79 17 100 98.2 10/03/25 08:10 Nasal Cannula* 2 28 Physical Exam Dermatological: Skin is dry with mild erythema and some maceration around the wound site No gross deformities noted Mild non-pitting edema present bilaterally Bilateral foot wounds with maceration and surrounding cellulitis Vascular: Dorsalis pedis and posterior tibial pulses are 1+ bilaterally Capillary refill is under 2 seconds Skin temperature is warm bilaterally Neurologic: Protective sensation is absent on the plantar forefoot bilaterally Monofilament testing reveals decreased sensation in multiple plantar sites Musculoskeletal: Range of motion at the ankle and MTP joints is within normal limits. Strength is 5/5 in all tested muscle groups. Gait is antalgic due to offloading of the affected limb. Labs/Diagnostic Data Labs Test 10/03/25 09:54 10/02/25 15:33 Range/Units Creatinine 0.76 0.700-1.30 mg/dL Glomerular Filtration Rate Calc 107 >90 mL/min White Blood Count 8.5 4.4-10.8 10^3/uL Red Blood Count 5.47 4.5-5.90 10^6/uL Hemoglobin 16.7 13.5-17.5 g/dL Hematocrit 48.6 41.0-53.0 % Mean Corpuscular Volume 88.8 80.0-100.0 fL Mean Corpuscular Hemoglobin 30.4 28.0-32.0 pg Mean Corpuscular Hemoglobin Concent 34.3 32.0-36.0 g/dL Red Cell Distribution Width 15.9 H 11.8-14.3 % Platelet Count 232 140-450 10^3/uL Mean Platelet Volume 8.4 6.9-10.8 fL Neutrophils (%) (Auto) 66.5 37.0-80.0 % Lymphocytes (%) (Auto) 21.4 10.0-50.0 % Monocytes (%) (Auto) 10.0 0.0-12.0 % Eosinophils (%) (Auto) 1.5 0.0-7.0 % Basophils (%) (Auto) 0.6 0.0-2.0 % Neutrophils # (Auto) 5.6 1.6-8.6 10 ^3/uL Lymphocytes # (Auto) 1.8 0.4-5.4 10 ^3/uL Monocytes # (Auto) 0.9 0-1.3 10 ^3/uL Eosinophils # (Auto) 0.1 0-0.8 10 ^3/uL Basophils # (Auto) 0 0-0.2 10 ^3/uL Nucleated Red Blood Cells 0.3 % Erythrocyte Sedimentation Rate 8 0-20 mm/hr Sodium Level 139 136-145 mmol/L Potassium Level 4.3 3.5-5.1 mmol/L Chloride Level 102 98-107 mmol/L Carbon Dioxide Level 26 20-31 mmol/L Anion Gap 11 5-15 Blood Urea Nitrogen 16 9-23 mg/dL BUN/Creatinine Ratio 17.8 10.0-20.0 Serum Glucose 70 L 74-106 mg/dL Lactic Acid Level 1.5 0.4-2.0 mmol/L Calcium Level 9.6 8.7-10.4 mg/dL Total Bilirubin 0.9 0.2-1.0 mg/dL Aspartate Amino Transferase (AST) 39 13-40 U/L Alanine Aminotransferase (ALT) 25 7-40 U/L Alkaline Phosphatase 89 46-116 U/L C-Reactive Protein High Sensitivity 0.99 <1.0 mg/dL Total Protein 7.6 5.7-8.2 g/dL Albumin 4.7 3.2-4.8 g/dL Problems(with codes): (1) Ulcer of right foot (2) Cellulitis of right leg (3) Peripheral vascular disease (4) Cellulitis of foot (5) Foot ulcer, left Plan/Recommendation ASSESSMENT: Patient is a 55 year old seen on the floor for a worsening ulcer PLAN: - The patients chart was reviewed, clinical findings were discussed with the patient, the etiologies of the conditions were discussed in detail, and a treatment plan was agreed to at this time, with both oral and written instructions provided. - recommend we get bilateral CT of the feet to rule out any deeper abscess - continue IV antibiotics - request arterial studies if not done to ensure blood flow was adequate - if no abscess seen on CT treat with IV antibiotics and transition to p.o. antibiotics - continue keeping wounds wrapped add Medihoney All questions were answered and concerns addressed to the patient's satisfaction. The patient was given the phone number to the clinic and was told how to make contact with the clinic should any concerns or questions arise. Patient understands that if any questions or concerns arise prior to the next appointment, we should be contacted immediately. FOLLOW-UP: Continue to follow while inpatient Plan discussed with: Patient Visit Coding Podiatry Date of Service if different f: Oct 03, 2025 Billing Provider: ROSANA GERBER DPM Podiatry Common Visit Codes: CONSULT ONLY Podiatry Consult Codes: [id number]/[id number] CONSLTJ NEW/EST HI 80 ROSANA GERBER DPM Oct 03, 2025 12:54
--- NOTE | 2025-10-03 17:12 | DVH ---
EXAM: CT CT L FOOT WO CONTRAST, CT CT R FOOT WO CONTRAST HISTORY: Abscess COMPARISON: R FOOT LIMITED XRAY on DOS: 09/17/22, L FOOT LIMITED XRAY on DOS: 09/17/22 TECHNIQUE: Noncontrast axial CT images of the bilateral feet were performed. Sagittal and coronal reformatted images were obtained. This CT exam was performed using one or more of the following dose reduction techniques: Automated exposure control, adjustment of the mA and/or kV according to patient size, or use of iterative reconstruction technique. Radiation Dose Information: CT Dose: CTDI volume is 7.75+ 7.75 mGy. Dose-length product is 478.68 mGy*cm FINDINGS: Right foot: There is bony demineralization . 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 There smooth bony margins at the amputation sites. No focal osteopenia or cortical destruction to suggest osteomyelitis. There is Mild subcutaneous edema in the distal right lower extremity extending into the right foot most pronounced in the dorsum. This is more pronounced about the lateral aspect of the mid foot. No well-formed fluid collection to suggest abscess. There are phleboliths in the visualized lower anterior rodriguez. There is hyperdensity along the skin of the lateral lower rodriguez of the distal right lower extremity which could be overlying bandaging. There is fatty infiltration of the visualized muscles of the distal right lower extremity and the right foot. The tendons and ligaments are grossly intact although not optimally evaluated by CT. There is Calcified athero sclerosis. No soft tissue gas. Left foot: Bony demineralization. Dorsal and plantar calcaneal enthesophytes. No acute fracture. No focal osteopenia or cortical destruction to suggest osteomyelitis. No acute fracture. Minimal subcutaneous edema in the distal left lower extremity extending into the left foot. Calcified athero sclerosis is present. The tendons and ligaments are grossly intact although not optimally evaluated by CT. No well-formed fluid collection or soft tissue gas. IMPRESSION: Right foot: 1. 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 Smooth bony margins. 2. No CT evidence of osteomyelitis. 3. Subcutaneous edema in the distal right lower extremity extending to the right foot most pronounced about the lateral right foot. 4. No well-formed fluid collection to suggest abscess. No soft tissue gas. Left foot: 1. No CT evidence of the Osteomyelitis or fluid collection to suggest abscess. 2. Minimal subcutaneous edema in the distal left lower extremity extending to the left foot.
[2025-10-03 17:33] VITALS: BP 114/56; PULSE 80; RESP 17; TEMP 97.3; O2SAT 98
[2025-10-03 21:00] VITALS: BP 153/66; PULSE 70; RESP 18; TEMP 98; O2SAT 96
[2025-10-03 22:30] VITALS: BP 149/84; PULSE 85; RESP 18
[2025-10-03] MEDS: ATORVASTATIN 20 MG TAB PO SCH (22:35)
[2025-10-04] VITALS (8 sets, daily range): BP systolic 126–165; BP diastolic 75–86; PULSE 69–94; RESP 14–20; TEMP 97.7–98.7; O2SAT 94–100
[2025-10-04 06:00] LABS: Hematocrit 45.0 % (41.0-53.0); Hemoglobin 15.4 g/dL (13.5-17.5); Mean Corpuscular Hemoglobin 30.5 pg (28.0-32.0); Mean Corpuscular Volume 89.3 fL (80.0-100.0); Nucleated Red Blood Cells % 0.1 %
--- NOTE | 2025-10-04 09:36 | DVHPN2 ---
Reviewed: Care Plan, H&P, Labs, Medications, Previous Orders, Radiology Changes from previous H/P or p: No Changes Objective Vitals Vital Signs Date Time Temp Pulse Resp B/P (MAP) Pulse Ox O2 Delivery O2 Flow Rate FiO2 10/04/25 06:29 82 18 139/80 10/04/25 05:00 98.3 98 98.3 10/03/25 20:00 Nasal Cannula* 2 28 Intake/Output Intake and Output 10/04/25 07:00 Intake Total 1905 ml Output Total 3750 ml Balance -1845 ml Intake Oral 1305 ml IV Total 600 ml Output Urine Total 3750 ml Medications Current Medications Medications Dose Ordered Sig/Sandoval Route Start Time Stop Time Status Last Admin Dose Admin Levofloxacin/ Dextrose 100 ml @ 100 mls/hr DAILY IV 10/03/25 10:00 10/03/25 09:28 100 MLS/HR Vancomycin HCl 0 ml @ 0 mls/hr PER PHARMACY IV 10/03/25 01:15 Lisinopril 20 mg DAILY PO 10/03/25 10:00 10/03/25 09:29 20 MG Atorvastatin Calcium 20 mg HS PO 10/03/25 22:00 10/03/25 22:35 20 MG Gabapentin 300 mg TID PO 10/03/25 06:00 10/04/25 05:59 300 MG Acetaminophen/ Hydrocodone Bitart 1 tab Q4HP PRN PO 10/03/25 01:15 10/03/25 10:07 1 TAB Temazepam 15 mg QHSP PRN PO 10/03/25 01:15 Ondansetron HCl 4 mg Q4HP PRN IV 10/03/25 01:15 Acetaminophen 650 mg Q6HP PRN PO 10/03/25 01:15 Morphine Sulfate 2 mg Q4HPRN PRN IV 10/03/25 01:30 10/04/25 05:59 2 MG Nifedipine 30 mg DAILY PO 10/03/25 10:00 10/03/25 09:29 30 MG Vancomycin HCl 250 ml @ 250 mls/hr Q8H IV 10/03/25 10:00 10/04/25 01:53 250 MLS/HR Laboratory Results Laboratory Tests 10/02/25 15:33 10/04/25 05:30 Microbiology Microbiology Date/Time Source Procedure Growth Status 10/02/25 18:22 Blood Blood Culture - Preliminary NO GROWTH AFTER 24 HOURS OF INCUBATION. Resulted Labs and/or images reviewed: Labs reviewed by me, Image(s) reviewed by me Assessment/Plan Assessment/Plan Cellulitis left lower extremity: Vancomycin Levaquin, consult by client portfolio manager Dr. Aparicio appreciated DVT ruled out bilateral lower extremities Arterial ultrasound pending CT bilateral feet negative for osteomyelitis or abscess Hypertension: Lisinopril Procardia History of peripheral arterial disease Hypercholesterolemia: Lipitor Time spent 50 minutes BAYRON Dee at bedside Plan discussed with: Patient My Orders Orders - CINTHIA TUTTLE MD Procedure Category Date Status Time Apply Z-Guard CATRACHO 10/03/25 In Process 12:20 * Dietary Consult CONS 10/03/25 Transmitted 15:17 Cleanse Wound With CATRACHO 10/03/25 In Process Wound Clean 12:20 Date of Service: Oct 04, 2025 Billing Provider: CINTHIA TUTTLE MD Common Visit Codes: [id number] INP/OBS CARE(HIGH) CINTHIA TUTTLE MD Oct 04, 2025 09:36
[2025-10-04] MEDS: VANCOMYCIN 750MG KIT 100 ML IV SCH (10:07)
--- NOTE | 2025-10-04 13:28 | DVH ---
BILATERAL Lower Extremity Arterial Duplex Date: 10/04/2025 10:19 AM CLINICAL HISTORY: Rule out peripheral arterial disease COMPARISON: BLEAD on DOS: 09/18/22, BILAT LOW EXT ART DUPLEX on DOS: 09/18/22 TECHNIQUE: Duplex Doppler evaluation including color Doppler and spectral/pulsed waveform analysis of the lower extremity arteries was performed. Finding: RIGHT: Peak systolic velocities are as follows: IT PROGRAM AUDITOR 149 cm/s triphasic waveform Deep femoral on 10 cm/s triphasic waveform SFA proximal 123 cm/s triphasic waveform SFA mid-portion 144 cm/s triphasic waveform SFA distal 124 cm/s triphasic waveform Popliteal 108 cm/s triphasic waveform Posterior tibial 24 cm/s monophasic waveform Anterior tibial 40 cm/s triphasic waveform Dorsalis pedis 0 cm/s The waveforms are triphasic waveform throughout the right lower extremity. Monophasic waveform in the posterior tibial artery and no flow in the dorsalis pedis. LEFT: Peak systolic velocities are as follows: IT PROGRAM AUDITOR 168 cm/s triphasic waveform Deep femoral 137 cm/s triphasic waveform SFA proximal 128 cm/s triphasic waveform SFA mid 128 cm/sec triphasic waveform SFA distal 146 cm/s triphasic waveform Popliteal 126 cm/s triphasic waveform Posterior tibial 139 cm/s triphasic waveform Anterior tibial 87 cm/s triphasic wave Dorsalis pedis 0 cm/s The waveforms are triphasic waveform throughout. No flow in the dorsalis pedis REFERENCE VALUES, [facility] ([facility]) vascular Imaging Lab Criteria: Peak systolic velocity ranges (in cm/sec) are as follows: <150 cm/s - <20 % stenosis 150-200 cm/s - 20-49% stenosis 200-300 cm/s - 50-75% stenosis >300 cm/s -> 75% stenosis IMPRESSION: 1. There is no evidence for peripheral vascular insufficiency in the right lower extremity. Triphasic waveforms throughout monophasic waveform in the posterior tibial artery, no flow in the dorsalis pedis 2. There is no evidence for peripheral vascular insufficiency in the left lower extremity. Triphasic waveform throughout, no flow in the dorsalis pedis 3. No significant focal stenosis is identified.
[2025-10-05 01:00] VITALS: BP 138/82; PULSE 88; RESP 18; TEMP 97.9; O2SAT 95
[2025-10-05 05:00] VITALS: BP 137/77; PULSE 84; RESP 16; TEMP 98.1; O2SAT 91
[2025-10-05 08:00] VITALS: PULSE 84; RESP 18
--- NOTE | 2025-10-05 08:24 | DVHPN2 ---
Reviewed: Care Plan, H&P, Labs, Medications, Previous Orders, Radiology Changes from previous H/P or p: No Changes Objective Vitals Vital Signs Date Time Temp Pulse Resp B/P (MAP) Pulse Ox O2 Delivery O2 Flow Rate FiO2 10/05/25 05:00 98.1 84 16 137/77 (97) 91 98.1 10/04/25 20:00 Room Air* 0 97 21 Intake/Output Intake and Output 10/05/25 07:00 Intake Total 2525 ml Output Total 4800 ml Balance -2275 ml Intake Oral 2125 ml IV Total 400 ml Output Urine Total 4800 ml Medications Current Medications Medications Dose Ordered Sig/Sandoval Route Start Time Stop Time Status Last Admin Dose Admin Levofloxacin/ Dextrose 100 ml @ 100 mls/hr DAILY IV 10/03/25 10:00 10/04/25 10:06 100 MLS/HR Vancomycin HCl 0 ml @ 0 mls/hr PER PHARMACY IV 10/03/25 01:15 Lisinopril 20 mg DAILY PO 10/03/25 10:00 10/04/25 10:05 20 MG Atorvastatin Calcium 20 mg HS PO 10/03/25 22:00 10/04/25 21:39 20 MG Gabapentin 300 mg TID PO 10/03/25 06:00 10/05/25 05:56 300 MG Acetaminophen/ Hydrocodone Bitart 1 tab Q4HP PRN PO 10/03/25 01:15 10/04/25 21:39 1 TAB Temazepam 15 mg QHSP PRN PO 10/03/25 01:15 Ondansetron HCl 4 mg Q4HP PRN IV 10/03/25 01:15 Acetaminophen 650 mg Q6HP PRN PO 10/03/25 01:15 Morphine Sulfate 2 mg Q4HPRN PRN IV 10/03/25 01:30 10/04/25 05:59 2 MG Nifedipine 30 mg DAILY PO 10/03/25 10:00 10/04/25 10:06 30 MG Vancomycin HCl 100 ml @ 100 mls/hr Q8H IV 10/04/25 10:00 10/05/25 01:44 100 MLS/HR Laboratory Results Laboratory Tests 10/02/25 15:33 10/04/25 05:30 Microbiology Microbiology Date/Time Source Procedure Growth Status 10/02/25 18:22 Blood Blood Culture - Preliminary NO GROWTH AFTER 48 HOURS OF INCUBATION. Resulted Labs and/or images reviewed: Labs reviewed by me, Image(s) reviewed by me Assessment/Plan Assessment/Plan Cellulitis left lower extremity: Vancomycin Levaquin, consult by meal attendant Dr. Aparicio appreciated DVT ruled out bilateral lower extremities Peripheral arterial disease ruled out CT bilateral feet negative for osteomyelitis or abscess Hypertension: Lisinopril Procardia History of peripheral arterial disease Hypercholesterolemia: Lipitor Time spent 50 minutes BAYRON Dee at bedside Plan discussed with: Patient My Orders Orders - CINTHIA TUTTLE MD Procedure Category Date Status Time Bilat Low Ext Art US 10/04/25 Resulted Duplex 09:28 Date of Service: Oct 05, 2025 Billing Provider: CINTHIA TUTTLE MD Common Visit Codes: [id number] INP/OBS CARE(HIGH) CINTHIA TUTTLE MD Oct 05, 2025 08:24
[2025-10-05] MEDS ORDERED: HYDR-4902 PO (08:26)
[2025-10-05] MEDS ORDERED: LEVO750T40 PO (08:26)
--- NOTE | 2025-10-05 08:32 | DVHDS2 ---
Discharge Summary Date of Admission Oct 02, 2025 at 23:53 Date of Discharge: Oct 05, 2025 Admitting Diagnosis Cellulitis left lower extremity Wounds: Cellulitis left lower extremity Labs/Diagnostic Data: Laboratory Results Test 10/04/25 05:30 10/04/25 00:58 10/02/25 15:33 White Blood Count 5.8 10^3/uL (4.4-10.8) Red Blood Count 5.04 10^6/uL (4.5-5.90) Hemoglobin 15.4 g/dL (13.5-17.5) Hematocrit 45.0 % (41.0-53.0) Mean Corpuscular Volume 89.3 fL (80.0-100.0) Mean Corpuscular Hemoglobin 30.5 pg (28.0-32.0) Mean Corpuscular Hemoglobin Concent 34.1 g/dL (32.0-36.0) Red Cell Distribution Width 15.5 % (11.8-14.3) Platelet Count 189 10^3/uL (140-450) Mean Platelet Volume 8.5 fL (6.9-10.8) Neutrophils (%) (Auto) 61.7 % (37.0-80.0) Lymphocytes (%) (Auto) 26.0 % (10.0-50.0) Monocytes (%) (Auto) 9.1 % (0.0-12.0) Eosinophils (%) (Auto) 2.5 % (0.0-7.0) Basophils (%) (Auto) 0.7 % (0.0-2.0) Neutrophils # (Auto) 3.6 10 ^3/uL (1.6-8.6) Lymphocytes # (Auto) 1.5 10 ^3/uL (0.4-5.4) Monocytes # (Auto) 0.5 10 ^3/uL (0-1.3) Eosinophils # (Auto) 0.1 10 ^3/uL (0-0.8) Basophils # (Auto) 0 10 ^3/uL (0-0.2) Nucleated Red Blood Cells 0.1 % Creatinine 0.72 mg/dL (0.700-1.30) Glomerular Filtration Rate Calc 109 mL/min (>90) Vancomycin Level Trough 14.8 ug/mL (5-10) Erythrocyte Sedimentation Rate 8 mm/hr (0-20) Sodium Level 139 mmol/L (136-145) Potassium Level 4.3 mmol/L (3.5-5.1) Chloride Level 102 mmol/L (98-107) Carbon Dioxide Level 26 mmol/L (20-31) Anion Gap 11 (5-15) Blood Urea Nitrogen 16 mg/dL (9-23) BUN/Creatinine Ratio 17.8 (10.0-20.0) Serum Glucose 70 mg/dL (74-106) Lactic Acid Level 1.5 mmol/L (0.4-2.0) Calcium Level 9.6 mg/dL (8.7-10.4) Total Bilirubin 0.9 mg/dL (0.2-1.0) Aspartate Amino Transferase (AST) 39 U/L (13-40) Alanine Aminotransferase (ALT) 25 U/L (7-40) Alkaline Phosphatase 89 U/L (46-116) C-Reactive Protein High Sensitivity 0.99 mg/dL (<1.0) Total Protein 7.6 g/dL (5.7-8.2) Albumin 4.7 g/dL (3.2-4.8) Other Laboratory Tests 10/04/25 05:30 10/02/25 15:33 Brief Hx & Hospital Course: 55-year-old male came in for chronic nonhealing wound left lower extremity treated with the vancomycin Levaquin current by podiatric Dr. Aparicio. CT bilateral feet negative for osteomyelitis or abscess. Peripheral artery disease ruled out DVT ruled out patient has a history of peripheral arterial disease in the past. Blood cultures negative. Discharged home on Levaquin and [place] tablets. He has [facility] support for the wound care. He will follow up with the primary Dr and audio visual project manager. Consults/Reason for consult Software Quality Assurance Engineer Dr. Aparicio Operations or Procedures MRI left foot and leg Venous ultrasound Arterial ultrasound Condition at Discharge: Fair Final Diagnosis/Problems List Cellulitis left lower extremity: Vancomycin Levaquin, consult by audio visual project manager Dr. Aparicio appreciated DVT ruled out bilateral lower extremities Peripheral arterial disease ruled out CT bilateral feet negative for osteomyelitis or abscess Hypertension: Lisinopril Procardia History of peripheral arterial disease Hypercholesterolemia: Lipitor Discharge Disposition: Home Discharge Instruct/Medications Diet: Cardiac 2g Na,low cholest Activity: Light activity Follow Up/Referral: Follow up with the primary Dr in one week Follow up with the audio visual project manager Dr. Aparicio in two weeks Medications: Levaquin [place] Transmitted to [facility]'s Scheduled Aspirin (Aspir-Low), 81 MG PO DAILY, (Reported) Atorvastatin Calcium (Atorvastatin Calcium), 20 MG PO DAILY, (Reported) Ciprofloxacin Hcl (Ciprofloxacin Hcl), 1 TAB PO BID, (Reported) Gabapentin (Gabapentin), 300 MG PO TID, (Reported) Hydrocodone-Acetaminophen (Hydrocodone Bitartrate/AC 10-325 mg), 1 TAB PO TID, (Reported) Levofloxacin Hemihydrate (Levofloxacin), 1 TAB PO DAILY Lisinopril (Lisinopril), 20 MG PO DAILY, (Reported) Metoprolol Tartrate (Metoprolol Tartrate), 100 MG PO BID, (Reported) Morphine Sulfate (Morphine Sulfate), 15 MG PO BID, (Reported) Nifedipine (Nifedipine Er), 1 TAB PO DAILY, (Reported) Omeprazole (Gnp Omeprazole), 20 MG PO DAILY, (Reported) Sulfamethoxazole W/Trimethopri (Bactrim Ds Tablet), 1 TAB PO BID, (Reported) Tizanidine Hydrochloride (Zanaflex), 4 MG PO TID, (Reported) Scheduled PRN Hydrocodone-Acetaminophen (Hydrocodone Bitartrate/AC 5-325 mg), 1 TAB PO QID PRN Miscellaneous Medications Mupirocin (Pseudomonas Fluores (Mupirocin), TOP, (Reported) 39 (Time taken for discharge summary 39 minutes) Discharge Statement: "Patient was advised to return to the ER or call 911 if any headaches, dizziness, shortness of breath, chest pain, abdominal pain, bleeding, fevers, or worsening of medical condition. Patient was counseled about treatment plan, medications, possible side effects, patientverbalized understanding. All questions were answered to the best of my ability. This discharge took greater then 30 minutes in planning, reviewing documentation, counseling the patient, and discussing with other team members." ASSESSMENT ASSESSMENT Hospital Course Improved Assessment Cellulitis left lower extremity: Vancomycin Levaquin, consult by audio visual project manager Dr. Aparicio appreciated DVT ruled out bilateral lower extremities Peripheral arterial disease ruled out CT bilateral feet negative for osteomyelitis or abscess Hypertension: Lisinopril Procardia History of peripheral arterial disease Hypercholesterolemia: Lipitor Date of Service: Oct 05, 2025 Billing Provider: CINTHIA TUTTLE MD Common Visit Codes: 43883-QUS/OBS DISCH DAY >30min CINTHIA TUTTLE MD Oct 05, 2025 08:32
[2025-10-05 09:00] VITALS: BP 149/96; PULSE 89; RESP 17; TEMP 97; O2SAT 92
[2025-10-05 09:49] LABS: Hematocrit 48.8 % (41.0-53.0); Hemoglobin 16.6 g/dL (13.5-17.5); Mean Corpuscular Hemoglobin 30.2 pg (28.0-32.0); Mean Corpuscular Volume 88.8 fL (80.0-100.0); Nucleated Red Blood Cells % 0.1 %
[2025-10-05 12:32] VITALS: BP 137/77; PULSE 84; RESP 18; TEMP 98.1; O2SAT 95
== END 2025-10-05 14:25 | disposition home or self-care (01) | DRG 383 ==
LOC: EDBD 15:14 → ER 15:14 → OVERFLOW 23:53 → CENTRAL 10-03 03:40
PROVIDERS: ADMIT Family Medicine; ATTEND Family Medicine
DX: L03.116 Cellulitis of left lower limb (principal); I87.2 Venous insufficiency (chronic) (peripheral); E78.00 Pure hypercholesterolemia, unspecified; I10 Essential (primary) hypertension; I73.9 Peripheral vascular disease, unspecified; F17.210 Nicotine dependence, cigarettes, uncomplicated; Z88.0 Allergy status to penicillin; Z90.49 Acquired absence of other specified parts of digestive tract; Z86.73 Personal history of transient ischemic attack (TIA), and cerebral infarction without residual deficits; Z82.3 Family history of stroke; Z82.49 Family history of ischemic heart disease and other diseases of the circulatory system; Z81.8 Family history of other mental and behavioral disorders; L97.529 Non-pressure chronic ulcer of other part of left foot with unspecified severity
CPT/HCPCS: 36415; 73700; 80053; 80202; 82565; 83605; 85025; 85652; 86141; 87040; 93925; 93970; 96365; G0378; J1956